=== PATIENT | female | born 1980 | race Caucasian/White ===

== ENCOUNTER 2021-03-30 03:50 | Emergency (ER) | payer OTHER, SELFPAY ==
--- NOTE | ~2021-03-30 | XR_ITS ---
EXAMINATION: XR CHEST CLINICAL INFORMATION: Dyspnea. Productive cough. COMPARISON: None TECHNIQUE: Frontal view of the chest was obtained. FINDINGS: The lungs are well expanded. There is no focal consolidation, edema, or effusion. No pneumothorax. The cardiomediastinal silhouette is within normal limits. No acute osseous abnormality. XR/XR chest 1V IMPRESSION: Clear lungs.
[2021-03-30 04:05] VITALS: BP 161/89; PULSE 92; RESP 26; TEMP 36.4; O2SAT 93; BMI 33.5
--- NOTE | 2021-03-30 04:14 | PC.NURSE ---
pt reports she was evaluated at urgent care yesterday, had a first dose of prednisone 40 mg and instructed to start taking singulair. pt has been experiencing dyspnea, increased at night with productive cough x 4 days. pt speaking in full sentences, reports that her spo2 was in the mid 80's while at home. 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 pt has moderate air movement with expiratory wheezing in all stauffer.
--- NOTE | 2021-03-30 04:38 | ED.ASTHMA ---
HPI - Asthma General Chief Complaint: Dyspnea Stated Complaint: Asthma Time Seen by Provider: 03/30/21 04:38 Source: patient Mode of arrival: ambulatory History of Present Illness HPI Narrative: 40-year-old female with known history of asthma presents with 4 days of worsening shortness of breath despite using her flow vent and nebulizer. She states she has never been seen in the emergency room for her asthma previously, but she noticed that her oxygenation was dipping down to the 85 percentile loss sleeping. She states this is not been associated with any fever, chills, chest pain/palpitations, nausea, vomiting, urinary pain/ burning / frequency. she has received both COVID-19 vaccines. Related Data Allergies Allergy/AdvReac Type Severity Reaction Status Date / Time amoxicillin [Amoxicillin] Allergy Unknown UNKNOWN Verified 03/30/21 04:13 coconut Allergy Unknown UNKNOWN Verified 03/30/21 04:13 hazelnut Allergy Unknown UNKNOWN Verified 03/30/21 04:13 Penicillins Allergy Unknown UNKNOWN Verified 03/30/21 04:13 Sulfa (Sulfonamide Allergy Unknown UNKNOWN Verified 03/30/21 04:13 Antibiotics) Latex, Natural Rubber AdvReac Blister Verified 03/30/21 04:13 From Lexapro Allergy Unknown UNKNOWN Uncoded 06/11/20 16:26 From Prozac Allergy Unknown UNKNOWN Uncoded 06/11/20 16:26 From Zoloft Allergy Unknown UNKNOWN Uncoded 06/11/20 16:26 Review of Systems Review of Systems: Pertinent positives and negatives as stated in HPI 10 point review of systems is otherwise negative. PMFSH Past Medical History Source: nursing notes reviewed Medical History Asthma Social History Social History Advance Directives: No Patient : No Physical Exam Vital Signs: Vital Signs: Last Vital Signs Temp 98.0 F 03/30/21 07:15 Pulse 101 H 03/30/21 08:15 Resp 23 H 03/30/21 08:15 BP 121/76 03/30/21 08:15 Pulse Ox 98 03/30/21 08:15 Body Mass Index 33.5 VITAL SIGNS: Reviewed. GENERAL: Well developed, well nourished, in no acute distress. HEAD: Normocephalic/atraumatic EYES: PERRLA, EOMI OROPHARYNX: no oral lesions noted, posterior pharynx clear LUNGS: Normal breath sounds. No adventitious sounds or accessory muscle use. SpO2<93> CARDIOVASCULAR: Regular rate and rhythm without noted murmurs ABDOMEN: Soft, non-tender, non-distended with bowel sounds. SKIN: Inspection of the skin reveals no rashes NEUROLOGIC: Alert and oriented x 4. Strength and sensation to light touch were grossly intact x 4. Course Course Course Narrative: On 40-year-old female with history and clinical cool presentation consistent with acute asthma exacerbation with low SpO2 and low suspicion for pneumonia or COVID-19. 0625: Patient still feeling short of breath and noted to have SpO2 94% on room air, and received and received 2nd albuterol treatment. On re-evaluation and walk test patient states she is feeling much better and her SpO2 percentage while walking was noted to be 96-97%. 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 [facility] - Asthma Lab Data Result diagrams: 03/30/21 04:52 03/30/21 04:52 Labs: Lab Results 03/30/21 03/30/21 03/30/21 Range/Units 04:52 04:52 04:52 WBC 10.8 (4.8-10.8) X10*3/uL RBC 4.19 L (4.20-5.50) X10*6/uL Hgb 13.2 (12.0-16.0) g/dl Hct 37.5 (37-47) % MCV 89.5 (80-98) fL MCH 31.5 (27.0-33.0) pg MCHC 35.2 H (31.0-35.0) g/dl RDW 13.0 (11.0-16.0) % Plt Count 318 (160-400) X10*3/uL MPV 9.4 (9.4-12.3) fL Immature Gran % (Auto) 0.4 (0.0-0.4) % Neut % (Auto) 67.0 (45-73) % Lymph % (Auto) 21.8 (20-40) % [place] % (Auto) 7.1 (2-11) % Eos % (Auto) 3.3 (0-4) % Baso % (Auto) 0.4 (0-2) % Lymph # (Auto) 2.3 (1.2-4.9) X10*3/uL [place] # (Auto) 0.8 (0.1-1.2) X10*3/uL Eos # (Auto) 0.4 (0.0-0.4) X10*3/uL Baso # (Auto) 0.0 (0.0-0.2) X10*3/uL Abs Immat Gran (auto) 0.04 H (0.00-0.03) X10*3/uL Absolute Neuts (auto) 7.2 (2.0-8.3) X10*3/uL Absolute Nucleated RBC 0.000 (0.0-0.012) X10*3/uL Nucleated RBC % (auto) 0.0 (0.0-0.2) /100WBC Sodium 140 (135-145) mmol/L Potassium 3.8 (3.3-5.1) mmol/L Chloride 108 (96-108) mmol/L Carbon Dioxide 20 L (22-29) mmol/L Anion Gap 16 (12-20) BUN 7 L (9-16) mg/dL Creatinine 0.70 (0.5-1.4) mg/dL Estim Creat Clear Calc 124.8 Estimated GFR > 60 Random Glucose 107 (60-115) mg/dL Calcium 9.2 (8.4-10.2) mg/dL Total Bilirubin 0.3 (0.0-1.0) mg/dL AST 18 (5-31) U/L ALT 12 (0-31) U/L Alkaline Phosphatase 46 (39-117) U/L Total Protein 7.2 (6.5-8.0) g/dL Albumin 4.2 (3.5-5.0) g/dL COVID-19 (AMPARO) Negative (Negative) COVID-19 Clin Com See Note Discharge Plan Discharge Clinical Impression: Asthma with exacerbation Patient Disposition: Home, Self-Care Instructions: Asthma (ED) Additional Instructions: 1. resume your course of p.o. steroids as prescribed. 2. Follow-up with your primary care provider today for re-evaluation and further planning for your symptoms. Return to the ER for any acute worsening of symptoms. Referrals: Sheila Salinas MD [Primary Care Provider] - 2 days ( Re-evaluation and outpatient management for visit to the ER for acute asthma exacerbation.)
[2021-03-30] MEDS: Albuterol Sulfate (0.083%) 2.5 MG/3 ML VIAL.NEB 10 MG INHALE (04:56)
[2021-03-30 04:58] VITALS: PULSE 89; O2SAT 93
[2021-03-30 04:59] LABS: MANUAL DIFF FLAG NO
[2021-03-30 05:00] LABS: Basophils Percent Auto 0.4 % (0-2); Eosinophils Absolute Auto 0.4 X10*3/uL (0.0-0.4); Eosinophils Percent Auto 3.3 % (0-4); Hematocrit 37.5 % (37-47); Hemoglobin 13.2 g/dl (12.0-16.0); Imm Gran Abs Auto 0.04 X10*3/uL (0.00-0.03); Imm Gran Pct Auto 0.4 % (0.0-0.4); Lymphocytes Absolute Auto 2.3 X10*3/uL (1.2-4.9); Lymphocytes Percent Auto 21.8 % (20-40); Mean Corpuscular HGB Conc 35.2 g/dl (31.0-35.0); Mean Corpuscular Hemoglobin 31.5 pg (27.0-33.0); Mean Corpuscular Volume 89.5 fL (80-98); Mean Platelet Volume 9.4 fL (9.4-12.3); Monocytes Absolute Auto 0.8 X10*3/uL (0.1-1.2); Monocytes Percent Auto 7.1 % (2-11); Neutrophils Absolute Auto 7.2 X10*3/uL (2.0-8.3); Platelet Count 318 X10*3/uL (160-400); Red Blood Count 4.19 X10*6/uL (4.20-5.50); White Blood Count 10.8 X10*3/uL (4.8-10.8)
[2021-03-30] MEDS: methylPREDNISolone Sod Succ 125 MG/2 ML VIAL IVPUSH (05:04)
[2021-03-30] MEDS: Magnesium Sulfate/H2O 2 GM/50 ML PIGGYBACK IV (05:04)
[2021-03-30 05:12] LABS: COVID-19 Test Negative (Negative)
--- NOTE | 2021-03-30 05:26 | PC.NURSE ---
PT PLACED ON MOLD CARRIER PER REQUEST OF RT FOR RESPIRATORY TREATMENT.
[2021-03-30 05:28] LABS: Alanine Aminotransferase 12 U/L (0-31); Albumin Level 4.2 g/dL (3.5-5.0); Alkaline Phosphatase 46 U/L (39-117); Anion Gap 16 (12-20); Aspartate Amino Transferase 18 U/L (5-31); Bilirubin Total 0.3 mg/dL (0.0-1.0); Blood Urea Nitrogen 7 mg/dL (9-16); Calcium 9.2 mg/dL (8.4-10.2); Carbon Dioxide 20 mmol/L (22-29); Chloride 108 mmol/L (96-108); Creatinine Clr Calc Pharmacy 124.8; Estimated Glomerular Filt Rate > 60; Glucose Random 107 mg/dL (60-115); Potassium 3.8 mmol/L (3.3-5.1); Sodium 140 mmol/L (135-145); Total Protein 7.2 g/dL (6.5-8.0)
[2021-03-30 06:14] VITALS: BP 133/67; PULSE 81; RESP 20; O2SAT 97
--- NOTE | 2021-03-30 06:15 | PC.NURSE ---
pt has rr 20, spo2 97% room air and feels like she can take deep breaths much clearer. pt breathing loudly at times, but while vitals are within normal range. pt ambulatory to bathroom with steady gait.
[2021-03-30 07:15] VITALS: BP 131/79; PULSE 88; RESP 24; TEMP 36.7; O2SAT 96
[2021-03-30] MEDS: Albuterol Sulfate (0.083%) 2.5 MG/3 ML VIAL.NEB 7.5 MG INHALE (07:35)
[2021-03-30 07:37] VITALS: PULSE 92; O2SAT 93
[2021-03-30 08:15] VITALS: BP 121/76; PULSE 101; RESP 23; O2SAT 98
== END 2021-03-30 09:17 | disposition home or self-care (01) ==
PROVIDERS: Emergency Provider Student in an Organized Health Care Education/Training Program; PCP Internal Medicine
DX: J45.901 Unspecified asthma with (acute) exacerbation (principal); Z20.822 Contact with and (suspected) exposure to COVID-19
CPT/HCPCS: 36415; 71045; 80053; 85025; 87635; 94640; 94644; 94645; 96365; 96366; 96375; 99284; J2930; J3475

== ENCOUNTER 2021-04-02 09:50 | Outpatient (REF) | payer OTHER, SELFPAY ==
[2021-04-02 11:38] LABS: MANUAL DIFF FLAG NO
[2021-04-02 11:44] LABS: Basophils Absolute Auto 0.1 X10*3/uL (0.0-0.2); Basophils Percent Auto 0.4 % (0-2); Eosinophils Absolute Auto 0.1 X10*3/uL (0.0-0.4); Eosinophils Percent Auto 1.1 % (0-4); Hematocrit 42.5 % (37-47); Hemoglobin 14.8 g/dl (12.0-16.0); Imm Gran Abs Auto 0.05 X10*3/uL (0.00-0.03); Imm Gran Pct Auto 0.4 % (0.0-0.4); Lymphocytes Absolute Auto 2.4 X10*3/uL (1.2-4.9); Lymphocytes Percent Auto 19.4 % (20-40); Mean Corpuscular HGB Conc 34.8 g/dl (31.0-35.0); Mean Corpuscular Hemoglobin 30.9 pg (27.0-33.0); Mean Corpuscular Volume 88.7 fL (80-98); Mean Platelet Volume 9.5 fL (9.4-12.3); Monocytes Absolute Auto 0.9 X10*3/uL (0.1-1.2); Monocytes Percent Auto 7.1 % (2-11); Neutrophils Absolute Auto 8.8 X10*3/uL (2.0-8.3); Neutrophils Percent Auto 71.6 % (45-73); Platelet Count 373 X10*3/uL (160-400); Red Blood Count 4.79 X10*6/uL (4.20-5.50); Red Cell Distribution Width 12.6 % (11.0-16.0); White Blood Count 12.3 X10*3/uL (4.8-10.8)
[2021-04-02 12:31] LABS: Erythrocyte Sedimentation Rate 12 MM/HR (0-20)
[2021-04-02 12:43] LABS: Anion Gap 13 (12-20); Blood Urea Nitrogen 12 mg/dL (9-16); Calcium 9.8 mg/dL (8.4-10.2); Carbon Dioxide 22 mmol/L (22-29); Chloride 107 mmol/L (96-108); Estimated Glomerular Filt Rate > 60; Glucose Random 93 mg/dL (60-115); Potassium 4.2 mmol/L (3.3-5.1); Sodium 138 mmol/L (135-145)
[2021-04-06 18:21] LABS: IgA 240 mg/dL (47-310); IgG 1104 mg/dL (600-1640); IgM 89 mg/dL (50-300)
== END 2021-04-02 09:51 | disposition home or self-care (01) ==
LOC: HO.LAB 09:50
PROVIDERS: PCP Internal Medicine; Visit Provider Hospitalist
DX: J45.51 Severe persistent asthma with (acute) exacerbation (principal); J30.2 Other seasonal allergic rhinitis; G47.33 Obstructive sleep apnea (adult) (pediatric)
CPT/HCPCS: 36415; 80048; 82784; 85025; 85652; 86003

== ENCOUNTER 2021-04-08 07:49 | Outpatient (REF) | payer OTHER, SELFPAY ==
--- NOTE | 2021-04-08 | PFT_ITS ---
FLOWS: FEV1 of 79% of predicted at 2.54 L. FVC 91% of predicted at 3.62 L. FEV1 to FVC ratio of 0.70. Positive bronchodilator response. LUNG VOLUMES: Total lung capacity 102% of predicted at 5.47 L. Residual volume 147% of predicted at 2.48 L. Slow vital capacity 81% of predicted at 2.99 L. Expiratory reserve volume 37% of predicted at 0.48 L. Diffusion capacity is mildly decreased, diffusion capacity corrects to normal after adjustment for alveolar ventilation. IMPRESSION: Moderate obstructive ventilatory defect with positive bronchodilator response. Increased residual volume suggests air trapping. Decreased expiratory reserve volume suggests extrathoracic restriction likely secondary to abdominal obesity. Faisal Valentino MD AP/MODL / [id number] MTDD
== END 2021-04-08 07:50 | disposition home or self-care (01) ==
LOC: HO.RESP 07:49
PROVIDERS: PCP Internal Medicine; Visit Provider Hospitalist
DX: J45.909 Unspecified asthma, uncomplicated (principal)
CPT/HCPCS: 94060; 94727; 94729

== ENCOUNTER → 2021-05-04 08:41 | Outpatient (BNVA) | payer OTHER, SELFPAY | PROVIDERS: PCP Internal Medicine; Visit Provider Hospitalist | DX: J45.909 Unspecified asthma, uncomplicated (principal); J44.9 Chronic obstructive pulmonary disease, unspecified ==

== ENCOUNTER → 2021-06-23 09:33 | Outpatient (BNVA) | payer OTHER, SELFPAY | PROVIDERS: PCP Internal Medicine; Visit Provider Hospitalist | DX: J45.909 Unspecified asthma, uncomplicated (principal); J44.9 Chronic obstructive pulmonary disease, unspecified ==

== ENCOUNTER 2021-08-30 09:26 | Outpatient (REF) | payer OTHER, SELFPAY ==
[2021-08-30 10:33] LABS: MANUAL DIFF FLAG NO
[2021-08-30 10:55] LABS: Basophils Absolute Auto 0.1 X10*3/uL (0.0-0.2); Basophils Percent Auto 1.3 % (0-2); Eosinophils Absolute Auto 1.4 X10*3/uL (0.0-0.4); Eosinophils Percent Auto 15.9 % (0-4); Hematocrit 40.2 % (37.0-47.0); Hemoglobin 13.8 g/dl (12.0-16.0); Imm Gran Abs Auto 0.04 X10*3/uL (0.00-0.03); Imm Gran Pct Auto 0.5 % (0.0-0.4); Lymphocytes Absolute Auto 1.7 X10*3/uL (1.2-4.9); Lymphocytes Percent Auto 20.2 % (20-40); Mean Corpuscular HGB Conc 34.3 g/dl (31.0-35.0); Mean Corpuscular Hemoglobin 30.9 pg (27.0-33.0); Mean Corpuscular Volume 89.9 fL (80.0-98.0); Mean Platelet Volume 9.2 fL (9.4-12.3); Monocytes Absolute Auto 0.6 X10*3/uL (0.1-1.2); Monocytes Percent Auto 6.6 % (2-11); Neutrophils Absolute Auto 4.7 x10*3/uL (2.0-8.3); Neutrophils Percent Auto 55.5 % (45-73); Platelet Count 351 X10*3/uL (160-400); Red Blood Count 4.47 X10*6/uL (4.20-5.50); Red Cell Distribution Width 12.6 % (11.0-16.0); White Blood Count 8.5 X10*3/uL (4.8-10.8)
[2021-08-30 11:16] LABS: Anion Gap 13 (12-20); Blood Urea Nitrogen 11 mg/dL (9-16); Calcium 9.6 mg/dL (8.4-10.2); Carbon Dioxide 25 mmol/L (22-29); Chloride 105 mmol/L (96-108); Estimated Glomerular Filt Rate > 60; Glucose Random 99 mg/dL (60-115); Potassium 4.5 mmol/L (3.3-5.1); Sodium 138 mmol/L (135-145)
[2021-08-30 11:33] LABS: Erythrocyte Sedimentation Rate 13 MM/HR (0-20)
[2021-09-01 18:42] LABS: Immunoglobulin G Subclass 1 512 mg/dL (382-929); Immunoglobulin G Subclass 2 292 mg/dL (241-700); Immunoglobulin G Subclass 3 68 mg/dL (22-178); Immunoglobulin G Subclass 4 97.8 mg/dL (4-86); Immunoglobulin G Total 1052 mg/dL (600-1640)
[2021-09-02 04:02] LABS: Immunoglobulin E 35 kU/L (<OR=114)
== END 2021-08-30 09:27 | disposition home or self-care (01) ==
LOC: HO.LAB 09:26
PROVIDERS: PCP Internal Medicine; Visit Provider Hospitalist
DX: J44.9 Chronic obstructive pulmonary disease, unspecified (principal); J45.51 Severe persistent asthma with (acute) exacerbation; J32.9 Chronic sinusitis, unspecified; J30.2 Other seasonal allergic rhinitis; G47.33 Obstructive sleep apnea (adult) (pediatric)
CPT/HCPCS: 36415; 80048; 82784; 82785; 85025; 85652; 86317

== ENCOUNTER → 2021-09-21 10:07 | Outpatient (BNVA) | payer OTHER, SELFPAY | PROVIDERS: Visit Provider Hospitalist ==

== ENCOUNTER → 2021-11-03 08:51 | Outpatient (BNVA) | payer OTHER, SELFPAY | PROVIDERS: PCP Internal Medicine; Visit Provider Hospitalist | DX: J45.909 Unspecified asthma, uncomplicated (principal); J44.9 Chronic obstructive pulmonary disease, unspecified ==

== ENCOUNTER 2022-01-18 13:04 | Outpatient (REF) | payer OTHER, SELFPAY ==
[2022-01-18 15:22] LABS: Influenza A PCR NEGATIVE (Negative); Influenza B PCR NEGATIVE (Negative); Resp Syncy Virus RNA Qual PCR NEGATIVE (Negative); SARS COV2 PCR INHOUSE NEGATIVE (Negative)
== END 2022-01-18 13:05 | disposition home or self-care (01) ==
LOC: HO.LAB 13:04
PROVIDERS: Visit Provider Nurse Practitioner Acute Care
DX: R68.89 Other general symptoms and signs (principal); R51.9 Headache, unspecified; Z20.822 Contact with and (suspected) exposure to COVID-19
CPT/HCPCS: 0241U

== ENCOUNTER 2022-01-18 13:04 | Outpatient (REF) | payer OTHER, SELFPAY ==
[2022-01-18 14:10] LABS: MANUAL DIFF FLAG NO
[2022-01-18 14:14] LABS: Basophils Absolute Auto 0.1 X10*3/uL (0.0-0.2); Basophils Percent Auto 1.1 % (0-2); Eosinophils Absolute Auto 1.4 X10*3/uL (0.0-0.4); Eosinophils Percent Auto 16.4 % (0-4); Hematocrit 39.2 % (37.0-47.0); Hemoglobin 13.2 g/dl (12.0-16.0); Imm Gran Abs Auto 0.03 X10*3/uL (0.00-0.03); Imm Gran Pct Auto 0.4 % (0.0-0.4); Lymphocytes Absolute Auto 1.7 X10*3/uL (1.2-4.9); Mean Corpuscular HGB Conc 33.7 g/dl (31.0-35.0); Mean Corpuscular Hemoglobin 30.6 pg (27.0-33.0); Mean Platelet Volume 9.6 fL (9.4-12.3); Monocytes Absolute Auto 0.6 X10*3/uL (0.1-1.2); Monocytes Percent Auto 6.8 % (2-11); Neutrophils Absolute Auto 4.7 x10*3/uL (2.0-8.3); Neutrophils Percent Auto 55.3 % (45-73); Platelet Count 383 X10*3/uL (160-400); Red Blood Count 4.31 X10*6/uL (4.20-5.50); Red Cell Distribution Width 12.4 % (11.0-16.0); White Blood Count 8.5 X10*3/uL (4.8-10.8)
[2022-01-18 14:31] LABS: Alanine Aminotransferase 17 U/L (0-31); Albumin Level 4.1 g/dL (3.5-5.0); Alkaline Phosphatase 59 U/L (39-117); Anion Gap 11 (12-20); Aspartate Amino Transferase 18 U/L (5-31); Bilirubin Total 0.5 mg/dL (0.0-1.0); Blood Urea Nitrogen 7 mg/dL (9-16); Calcium 9.3 mg/dL (8.4-10.2); Carbon Dioxide 27 mmol/L (22-29); Chloride 104 mmol/L (96-108); Estimated Glomerular Filt Rate > 60; Glucose Random 100 mg/dL (60-115); Potassium 4.2 mmol/L (3.3-5.1); Sodium 138 mmol/L (135-145); Total Protein 7.3 g/dL (6.5-8.0)
== END 2022-01-18 13:05 | disposition home or self-care (01) ==
LOC: HO.HMGCLDS 13:04
PROVIDERS: PCP Internal Medicine; Visit Provider Nurse Practitioner Acute Care
DX: R68.89 Other general symptoms and signs (principal); R51.9 Headache, unspecified
CPT/HCPCS: 36415; 80053; 85025

== ENCOUNTER 2022-03-30 16:36 | Outpatient (REF) | payer OTHER, SELFPAY ==
[2022-03-30 18:03] LABS: Influenza A PCR NEGATIVE (Negative); Influenza B PCR NEGATIVE (Negative); Resp Syncy Virus RNA Qual PCR NEGATIVE (Negative); SARS COV2 PCR INHOUSE NEGATIVE (Negative)
== END 2022-03-30 16:37 | disposition home or self-care (01) ==
LOC: HO.LNP 16:36
PROVIDERS: Visit Provider Emergency Medicine
DX: Z20.822 Contact with and (suspected) exposure to COVID-19 (principal); R68.89 Other general symptoms and signs
CPT/HCPCS: 0241U

== ENCOUNTER 2022-04-20 08:13 | Outpatient (REF) | payer OTHER, SELFPAY ==
[2022-04-20 09:27] LABS: Alanine Aminotransferase 16 U/L (0-31); Albumin Level 4.4 g/dL (3.5-5.0); Alkaline Phosphatase 51 U/L (39-117); Anion Gap 13 (12-20); Aspartate Amino Transferase 18 U/L (5-31); Bilirubin Total 0.6 mg/dL (0.0-1.0); Blood Urea Nitrogen 7 mg/dL (9-16); Calcium 9.1 mg/dL (8.4-10.2); Carbon Dioxide 23 mmol/L (22-29); Chloride 107 mmol/L (96-108); Cholesterol 198 mg/dL; Estimated Glomerular Filt Rate > 60; Glucose Fasting 125 mg/dL (60-99); HDL Cholesterol 40 mg/dL; LDL Cholesterol Calculated 142 mg/dl; Potassium 4.1 mmol/L (3.3-5.1); Sodium 139 mmol/L (135-145); Total Protein 7.6 g/dL (6.5-8.0); Triglycerides 84 mg/dL
[2022-04-20 09:51] LABS: TSH reflex Free T4 1.48 uIU/mL (0.32-4.0); Vitamin D 25-OH Total 48.6 ng/mL (>30)
[2022-04-20 09:56] LABS: Folate 7.1 ng/mL (> or = 4.0); Vitamin B12 354 pg/mL (200-900)
== END 2022-04-20 08:14 | disposition home or self-care (01) ==
LOC: HO.LAB 08:13
PROVIDERS: PCP Internal Medicine; Visit Provider Nurse Practitioner Family
DX: Z13.29 Encounter for screening for other suspected endocrine disorder (principal); Z13.220 Encounter for screening for lipoid disorders; J44.9 Chronic obstructive pulmonary disease, unspecified
CPT/HCPCS: 36415; 80053; 80061; 82306; 82607; 82746; 84443

== ENCOUNTER 2022-08-22 12:53 | Emergency (ER) | payer OTHER, SELFPAY ==
--- NOTE | ~2022-08-22 | CT_ITS ---
EXAMINATION: CT HEAD WITHOUT CONTRAST CLINICAL INFORMATION: Dizziness, blurred vision. COMPARISON: None TECHNIQUE: Contiguous axial imaging was performed from the skull base to vertex without intravenous administration of contrast. Oral and sagittal reformatted images were obtained. This CT examination was performed using dose optimization techniques as appropriate, variously including the following: *Automated exposure control *Adjustment of mA and/or kV according to patient size (this includes techniques or standardized protocols for targeted exams where dose is matched to indication/reason for exam; i.e. extremities or head) *Use of iterative reconstruction technique DLP: 665 mGy-cm FINDINGS: The cortical sulci are normal. The lateral ventricles are symmetrical. The third and fourth ventricles are in their normal midline position. The basilar and prepontine cisterns are unremarkable. There is no acute intra or extracerebral abnormality. There is no mass effect or midline shift. Sections through the bony calvarium are unremarkable. The paranasal sinuses are clear. The bony orbits and orbital contents are unremarkable. CT/CT head/brain wo IV con IMPRESSION: No acute intracranial pathology.
[2022-08-22 14:28] VITALS: BP 169/91; PULSE 70; RESP 16; TEMP 36.9; O2SAT 99; BMI 31.4
--- NOTE | 2022-08-22 14:28 | ED_ITS ---
HPI - Dizziness General Chief Complaint: Dizziness <TELMA Henning - Last Filed: 08/22/22 14:32> Stated Complaint: dizzy for a few weeks, cant walk straight <TELMA Henning - Last Filed: 08/22/22 14:32> Time Seen by Provider: 08/22/22 22:53 <TELMA Henning - Last Filed: 08/22/22 14:32> Source: patient <Lulu Guidry MD - Last Filed: 08/23/22 00:01> Mode of arrival: ambulatory <Lulu Guidry MD - Last Filed: 08/23/22 00:01> Limitations: no limitations <Lulu Guidry MD - Last Filed: 08/23/22 00:01> History of Present Illness HPI Narrative: Patient comes to the emergency room complaining dizziness, difficulty finding words since for the last 22 days. Patient states that all of her symptoms started right after she got off a ship/cruise. Patient states that she has constantly the sensation that she is still on the ship. Patient denies chest pain or shortness of breath. Patient states that she has had difficulty walking straight, difficulty finding words, headaches. Patient states that urgent care gave her butalbital-acetaminophen for headache. Patient has also been using scopolamine patches. <Lulu Guidry MD - Last Filed: 08/23/22 00:01> Related Data Home Medications: Home Medications Medication Instructions Recorded Confirmed albuterol sulfate 90 mcg/actuation inhalation 04/02/21 04/14/22 aerosol inhaler lorazepam 0.5 mg tablet mg PO 04/02/21 04/14/22 phentermine 15 mg capsule 15 mg PO QAM 04/20/22 Previous Rx's Medication Instructions Recorded budesonide 0.5 mg/2 mL suspension 0.5 mg (2 mL) inhalation BID 30 04/02/21 for nebulization days #120 mL dupilumab 300 mg/2 mL subcutaneous 300 mg (2 mL) subcut Q2W 365 days 09/09/21 syringe (Lemko) #56 mL meclizine 25 mg tablet 25 mg PO BID PRN dizziness #30 tabs 01/18/22 ondansetron 4 mg disintegrating 4 mg PO Q8H PRN nausea and 01/18/22 tablet vomiting 14 days #20 tabs ipratropium 0.5 mg-albuterol 3 mg 3 ml inhalation BID PRN shortness 04/14/22 (2.5 mg base)/3 mL nebulization of breath or wheezing 30 days #180 soln mL bfyfdbphqw-eygdebpcfhqfc-smyuxowk 1 cap PO Q4-6H PRN headache #10 04/19/22 50 mg-300 mg-40 mg capsule caps (Fioricet) Spiriva Respimat 2.5 mcg/actuation 2 puff PO DAILY #4 grams 05/16/22 solution for inhalation (tiotropium bromide) Symbicort 160 mcg-4.5 2 puff PO BID #10.2 ea 05/16/22 mcg/actuation HFA aerosol inhaler (budesonide-formoterol) omeprazole 40 mg capsule,delayed 40 mg PO DAILY #90 caps 07/10/22 release diazepam 2 mg tablet 2 mg PO BID PRN dizziness or 08/22/22 vertigo #6 tabs meclizine 25 mg tablet 25 mg PO TID PRN motion sickness 08/22/22 #20 tabs <TELMA Henning - Last Filed: 08/22/22 14:32> Allergies/Adverse Reactions: Allergies Allergy/AdvReac Type Severity Reaction Status Date / Time amoxicillin [Amoxicillin] Allergy Severe Rash/Hives Verified 04/20/22 08:44 coconut Allergy Severe Rash/Hives Verified 04/20/22 08:44 hazelnut Allergy Severe Rash/Hives Verified 04/20/22 08:44 Penicillins Allergy Severe Rash/Hives Verified 04/20/22 08:44 Sulfa (Sulfonamide Allergy Severe Rash/Hives Verified 04/20/22 08:44 Antibiotics) Latex, Natural Rubber AdvReac Severe Blister Verified 04/20/22 08:44 From Lexapro Allergy Severe Rash/Hives Uncoded 04/20/22 08:44 From Prozac Allergy Severe Rash/Hives Uncoded 04/20/22 08:44 From Zoloft Allergy Severe Rash/Hives Uncoded 04/20/22 08:44 <TELMA Henning - Last Filed: 08/22/22 14:32> Review of Systems Review of Systems: Constitutional : No Weight loss, No Fever, No Chills, No Night Sweats, No Fatigue, No Malaise ENT/Mouth : No Hearing loss, No Ear Pain, No Nasal Congestion, No Sinus Pain, No Hoarseness, No sore throat, No Rhinorrhea, No Swallowing Difficulty Eyes: No Eye Pain, No Swelling, No Redness, No Foreign Body, No Discharge, No Vision Changes Cardiovascular : No Chest Pain, No SOB, No Dyspnea on Exertion, No Orthopnea, No Edema, No Palpitations Respiratory : No Cough, No Sputum, No Wheezing, No Smoke Exposure, No Dyspnea Gastrointestinal : No Nausea, No Vomiting, No Diarrhea, No Constipation, No abdominal Pain, No Hematochezia, No Melena Genitourinary : no irregular bleeding, No Dysuria, No Urinary Frequency, No Hematuria, No Urinary Incontinence, No Urgency, No Flank Pain, No Urinary Flow Changes, No Hesitancy Musculoskeletal : No joint pain, No Myalgias, No Joint Swelling Skin : No Skin Lesions, No rash Neuro : No Weakness, No Numbness, No Paresthesias, No Loss of Consciousness, complaining of constant motion like sensation, like being on a ship, migraine headaches Psych : No Anxiety/Panic, No Depression, No SI/HI/AH/VH, No Social Issues, Heme/Lymph: No Bruising, No Bleeding,No Lymphadenopathy Endocrine : No Polyuria, No Polydipsia, No Temperature Intolerance <Lulu Guidry MD - Last Filed: 08/23/22 00:01> [facility] Past Medical History Medical History: Medical History Asthma Asthma Asthma-COPD overlap syndrome MORALES (obstructive sleep apnea) Seasonal allergies <TELMA Henning - Last Filed: 08/22/22 14:32> Surgical History: Surgical History H/O cardiac catheterization History of section <TELMA Henning - Last Filed: 08/22/22 14:32> Social History Social History: Social History Patient Tobacco Use Status: Former Tobacco user Tobacco use type: Cigarette Years Smoked: 11 years Advance Directives: No Advance Directives Information Provided: Yes Cognitive needs: No Hearing needs: No Vision needs: No <TELMA Henning - Last Filed: 08/22/22 14:32> Physical Exam Vital Signs: Vital Signs: Last Vital Signs Temp 97.9 F 08/22/22 21:43 Pulse 68 08/22/22 21:43 Resp 18 08/22/22 21:43 BP 144/87 H 08/22/22 21:43 Pulse Ox 99 08/22/22 21:43 O2 Del Method 08/22/22 21:43 BMI result Body Mass Index 31.4 <TLEMA Henning - Last Filed: 08/22/22 14:32> Vital Signs: Last Vital Signs Temp 97.9 F 08/22/22 21:43 Pulse 68 08/22/22 21:43 Resp 18 08/22/22 21:43 BP 144/87 H 08/22/22 21:43 Pulse Ox 99 08/22/22 21:43 O2 Del Method 08/22/22 21:43 BMI result Body Mass Index 31.4 <Lulu Guidry MD - Last Filed: 08/23/22 00:01> Const: Other: Appearance: Alert. Oriented X3. No acute distress. Eyes: Pupils equal, round and reactive to light. ENT: Pharynx normal. Neck: Normal inspection. Neck supple. No lymph nodes noted. No crepitus CVS: Normal heart rate and rhythm. Pulses normal. Normal S1 and S2 Respiratory: No respiratory distress. Breath sounds normal. No Wheezing. No rales Abdomen: Soft and nontender. No rigidity. No distention. Skin: Skin warm and dry. Normal skin color. Normal skin turgor. Extremities: No lower extremity edema. No Lacerations. No Rash Neuro: Oriented X 3. No motor deficit. No sensory deficit. Moving all extremities. No slurred speech. CN 2 through 12 grossly intact, normal speech, patient walked from the waiting room to warts her room with normal steady gait, unassisted. Patient has completely normal speech, no dysarthria, no aphasia Psych: calm, cooperative, very anxious <Lulu Guidry MD - Last Filed: 08/23/22 00:01> Course Course Course Narrative: Patient walked in to triage with normal gait. Furthermore, patient walked from the waiting room torso with normal unassisted gait, steady. On physical exam, patient's exam is completely normal. NIH is [address] scan is negative, hematology and chemistry Patient was given p.o. diazepam and meclizine, IV diphenhydramine, ketorolac It has been 22 days since the patient started with her symptoms, started right after getting off a cruise ship. Patient likely disembarkment syndrome. I was informed by the patient's nurse that the patient declined diazepam diphenhydramine and ketorolac. Patient states that she feels well. Patient also states that she would like to be discharged and does not want her discharge to be delayed due to medication. Patient agreed to take meclizine. Patient requesting a prescription home. <Lulu Guidry MD - Last Filed: 08/23/22 00:01> Reevaluation(s) Reevaluation #1: RME: 41 year old female hx of migranes prsents w/ dizziess and dificulty finding words for weeks. On 07/31 came back from a cruise and since then has felt dizzy describes it as walking on a boat, also having headache and notes her speech has been difficult. Reports she cant walk a straigt line. Has taken barbituattes for headache and meclizine w/o relief. Reports blurred vision,photophobia and nausea. Denies chest pain, shortness of breath, fevers, chills, numbness and tingling. Not on thinners PE - benign. NIHSS-0. Cerbellar intact. Plan- labs, ct head, ekg <TELMA Henning - Last Filed: 08/22/22 14:32> Medications Administered Discontinued Medications Generic Name Dose Route Start Last Admin Trade Name Magda PRN Reason Stop Dose Admin Diazepam 4 mg 08/22/22 22:58 08/22/22 23:50 Diazepam 2 Mg Tablet PO 08/22/22 22:59 Not Given ONCE ONE Diphenhydramine HCl 25 mg 08/22/22 22:58 08/22/22 23:50 Diphenhydramine Hcl 50 Mg/Ml Vial IVPUSH 08/22/22 22:59 Not Given ONCE ONE Ketorolac Tromethamine 30 mg 08/22/22 22:58 08/22/22 23:50 Ketorolac Tromethamine 30 Mg/Ml Vial IVPUSH 08/22/22 22:59 Not Given ONCE ONE Meclizine HCl 50 mg 08/22/22 22:58 08/22/22 23:40 Meclizine Hcl 25 Mg Tablet PO 08/22/22 22:59 50 mg ONCE ONE Administration <TELMA Henning - Last Filed: 08/22/22 14:32> Medications Administered Discontinued Medications Generic Name Dose Route Start Last Admin Trade Name Magda RICE Reason Stop Dose Admin Diazepam 4 mg 08/22/22 22:58 08/22/22 23:50 Diazepam 2 Mg Tablet PO 08/22/22 22:59 Not Given ONCE ONE Diphenhydramine HCl 25 mg 08/22/22 22:58 08/22/22 23:50 Diphenhydramine Hcl 50 Mg/Ml Vial IVPUSH 08/22/22 22:59 Not Given ONCE ONE Ketorolac Tromethamine 30 mg 08/22/22 22:58 08/22/22 23:50 Ketorolac Tromethamine 30 Mg/Ml Vial IVPUSH 08/22/22 22:59 Not Given ONCE ONE Meclizine HCl 50 mg 08/22/22 22:58 08/22/22 23:40 Meclizine Hcl 25 Mg Tablet PO 08/22/22 22:59 50 mg ONCE ONE Administration <Lulu Guidry MD - Last Filed: 08/23/22 00:01> MDM - Dizziness Lab Data Result diagrams: : 08/22/22 15:55 08/22/22 15:55 <TELMA Henning - Last Filed: 08/22/22 14:32> Labs: Lab Results 08/22/22 08/22/22 Range/Units 15:55 15:55 WBC 7.4 (4.8-10.8) X10*3/uL RBC 4.49 (4.20-5.50) X10*6/uL Hgb 13.7 (12.0-16.0) g/dl Hct 40.7 (37.0-47.0) % MCV 90.6 (80.0-98.0) fL MCH 30.5 (27.0-33.0) pg MCHC 33.7 (31.0-35.0) g/dl RDW 13.0 (11.0-16.0) % Plt Count 392 (160-400) X10*3/uL MPV 9.5 (9.4-12.3) fL Immature Gran % (Auto) 0.3 (0.0-0.4) % Neut % (Auto) 58.7 (45-73) % Lymph % (Auto) 25.4 (20-40) % [place] % (Auto) 9.4 (2-11) % Eos % (Auto) 5.5 H (0-4) % Baso % (Auto) 0.7 (0-2) % Lymph # (Auto) 1.9 (1.2-4.9) X10*3/uL [place] # (Auto) 0.7 (0.1-1.2) X10*3/uL Eos # (Auto) 0.4 (0.0-0.4) X10*3/uL Baso # (Auto) 0.1 (0.0-0.2) X10*3/uL Abs Immat Gran (auto) 0.02 (0.00-0.03) X10*3/uL Absolute Neuts (auto) 4.4 (2.0-8.3) x10*3/uL Absolute Nucleated RBC 0.000 (0.0-0.012) X10*3/uL Nucleated RBC % (auto) 0.0 (0.0-0.2) /100WBC Sodium 135 (135-145) mmol/L Potassium 4.5 (3.3-5.1) mmol/L Chloride 104 (96-108) mmol/L Carbon Dioxide 22 (22-29) mmol/L Anion Gap 14 (12-20) BUN 14 (9-16) mg/dL Creatinine 0.75 (0.5-1.4) mg/dL Estim Creat Clear Calc 111.7 Estimated GFR > 60 Random Glucose 95 (60-115) mg/dL Calcium 9.9 D (8.4-10.2) mg/dL Magnesium 2.0 (1.6-2.6) mg/dL Total Bilirubin 0.4 (0.0-1.0) mg/dL AST 18 (5-31) U/L ALT 17 (0-31) U/L Alkaline Phosphatase 45 (39-117) U/L Total Protein 7.5 (6.5-8.0) g/dL Albumin 4.4 (3.5-5.0) g/dL <TELMA Henning - Last Filed: 08/22/22 14:32> Lab Results 08/22/22 08/22/22 Range/Units 15:55 15:55 WBC 7.4 (4.8-10.8) X10*3/uL RBC 4.49 (4.20-5.50) X10*6/uL Hgb 13.7 (12.0-16.0) g/dl Hct 40.7 (37.0-47.0) % MCV 90.6 (80.0-98.0) fL MCH 30.5 (27.0-33.0) pg MCHC 33.7 (31.0-35.0) g/dl RDW 13.0 (11.0-16.0) % Plt Count 392 (160-400) X10*3/uL MPV 9.5 (9.4-12.3) fL Immature Gran % (Auto) 0.3 (0.0-0.4) % Neut % (Auto) 58.7 (45-73) % Lymph % (Auto) 25.4 (20-40) % [place] % (Auto) 9.4 (2-11) % Eos % (Auto) 5.5 H (0-4) % Baso % (Auto) 0.7 (0-2) % Lymph # (Auto) 1.9 (1.2-4.9) X10*3/uL [place] # (Auto) 0.7 (0.1-1.2) X10*3/uL Eos # (Auto) 0.4 (0.0-0.4) X10*3/uL Baso # (Auto) 0.1 (0.0-0.2) X10*3/uL Abs Immat Gran (auto) 0.02 (0.00-0.03) X10*3/uL Absolute Neuts (auto) 4.4 (2.0-8.3) x10*3/uL Absolute Nucleated RBC 0.000 (0.0-0.012) X10*3/uL Nucleated RBC % (auto) 0.0 (0.0-0.2) /100WBC Sodium 135 (135-145) mmol/L Potassium 4.5 (3.3-5.1) mmol/L Chloride 104 (96-108) mmol/L Carbon Dioxide 22 (22-29) mmol/L Anion Gap 14 (12-20) BUN 14 (9-16) mg/dL Creatinine 0.75 (0.5-1.4) mg/dL Estim Creat Clear Calc 111.7 Estimated GFR > 60 Random Glucose 95 (60-115) mg/dL Calcium 9.9 D (8.4-10.2) mg/dL Magnesium 2.0 (1.6-2.6) mg/dL Total Bilirubin 0.4 (0.0-1.0) mg/dL AST 18 (5-31) U/L ALT 17 (0-31) U/L Alkaline Phosphatase 45 (39-117) U/L Total Protein 7.5 (6.5-8.0) g/dL Albumin 4.4 (3.5-5.0) g/dL <Lulu Guidry MD - Last Filed: 08/23/22 00:01> Imaging Data CT scan - head: Radiologist's impression: FINDINGS: The cortical sulci are normal. The lateral ventricles are symmetrical. The third and fourth ventricles are in their normal midline position. The basilar and prepontine cisterns are unremarkable. There is no acute intra or extracerebral abnormality. There is no mass effect or midline shift. Sections through the bony calvarium are unremarkable. The paranasal sinuses are clear. The bony orbits and orbital contents are unremarkable. CT/CT head/brain wo IV con IMPRESSION: No acute intracranial pathology. <Lulu Guidry MD - Last Filed: 08/23/22 00:01> Discharge Plan Discharge Clinical Impression: Dizziness <TELMA Henning - Last Filed: 08/22/22 14:32> Patient Disposition: Home, Self-Care <TELMA Henning - Last Filed: 08/22/22 14:32> Instructions: Motion Sickness (ED), Dizziness (ED) <TELMA Henning - Last Filed: 08/22/22 14:32> Additional Instructions: Please follow-up with your primary care physician tomorrow. If you have any worsening or new symptoms, please return to the emergency room or call 911 <TELMA Henning - Last Filed: 08/22/22 14:32> Prescriptions: New meclizine 25 mg tablet 25 mg PO TID PRN (Reason: motion sickness) Qty: 20 0RF diazepam 2 mg tablet 2 mg PO BID PRN (Reason: dizziness or vertigo) Qty: 6 0RF No Action Dupixent Syringe 300 mg/2 mL syringe 300 mg subcut Q2W 365 Days Qty: 56 0RF Rx Instructions: LOading dose: 600mg SC x 1, then 300mg every 2 weeks diuejramsw-duahfnwiggbiu-bdbk [Fioricet] 50-300-40 mg capsule 1 cap PO Q4-6H PRN (Reason: headache) Qty: 10 0RF budesonide-formoterol [Symbicort] 160-4.5 mcg/actuation HFA aerosol inhaler 2 puff PO BID Qty: 10.2 11RF Spiriva Respimat 2.5 mcg/actuation mist 2 puff PO DAILY Qty: 4 11RF omeprazole 40 mg capsule,delayed release(DR/EC) 40 mg PO DAILY Qty: 90 0RF ipratropium-albuterol 0.5 mg-3 mg(2.5 mg base)/3 mL solution for nebulization 3 ml inhalation BID PRN (Reason: shortness of breath or wheezing) 30 Days Qty: 180 11RF meclizine 25 mg tablet 25 mg PO BID PRN (Reason: dizziness) Qty: 30 0RF ondansetron 4 mg tablet,disintegrating 4 mg PO Q8H PRN (Reason: nausea and vomiting) 14 Days Qty: 20 0RF albuterol sulfate 90 mcg/actuation HFA aerosol inhaler inhalation lorazepam 0.5 mg tablet PO budesonide 0.5 mg/2 mL suspension for nebulization 0.5 mg inhalation BID 30 Days Qty: 120 11RF phentermine 15 mg capsule 15 mg PO QAM <TELMA Henning - Last Filed: 08/22/22 14:32>
--- NOTE | 2022-08-22 14:32 | ECG_ITS ---
Test Reason : DIZZINESS Blood Pressure : / mmHG Vent. Rate : 061 BPM Atrial Rate : 061 BPM P-R Int : 126 ms QRS Dur : 078 ms QT Int : 424 ms P-R-T Axes : -21 015 046 degrees QTc Int : 426 ms Normal sinus rhythm Low voltage QRS Nonspecific ST abnormality Abnormal ECG When compared with ECG of 03-JAN-2010 08:40, No significant change was found Referred By: Gaudencio Donis Electronically Signed By:WANDY PEARSON MD
[2022-08-22 16:05] LABS: MANUAL DIFF FLAG NO
[2022-08-22 16:08] LABS: Basophils Absolute Auto 0.1 X10*3/uL (0.0-0.2); Basophils Percent Auto 0.7 % (0-2); Eosinophils Absolute Auto 0.4 X10*3/uL (0.0-0.4); Eosinophils Percent Auto 5.5 % (0-4); Hematocrit 40.7 % (37.0-47.0); Hemoglobin 13.7 g/dl (12.0-16.0); Imm Gran Abs Auto 0.02 X10*3/uL (0.00-0.03); Imm Gran Pct Auto 0.3 % (0.0-0.4); Lymphocytes Absolute Auto 1.9 X10*3/uL (1.2-4.9); Lymphocytes Percent Auto 25.4 % (20-40); Mean Corpuscular HGB Conc 33.7 g/dl (31.0-35.0); Mean Corpuscular Hemoglobin 30.5 pg (27.0-33.0); Mean Corpuscular Volume 90.6 fL (80.0-98.0); Mean Platelet Volume 9.5 fL (9.4-12.3); Monocytes Absolute Auto 0.7 X10*3/uL (0.1-1.2); Monocytes Percent Auto 9.4 % (2-11); Neutrophils Absolute Auto 4.4 x10*3/uL (2.0-8.3); Neutrophils Percent Auto 58.7 % (45-73); Platelet Count 392 X10*3/uL (160-400); Red Blood Count 4.49 X10*6/uL (4.20-5.50); White Blood Count 7.4 X10*3/uL (4.8-10.8)
[2022-08-22 16:26] LABS: Alanine Aminotransferase 17 U/L (0-31); Albumin Level 4.4 g/dL (3.5-5.0); Alkaline Phosphatase 45 U/L (39-117); Anion Gap 14 (12-20); Aspartate Amino Transferase 18 U/L (5-31); Bilirubin Total 0.4 mg/dL (0.0-1.0); Blood Urea Nitrogen 14 mg/dL (9-16); Calcium 9.9 mg/dL (8.4-10.2); Carbon Dioxide 22 mmol/L (22-29); Chloride 104 mmol/L (96-108); Creatinine Clr Calc Pharmacy 111.7; Estimated Glomerular Filt Rate > 60; Glucose Random 95 mg/dL (60-115); Potassium 4.5 mmol/L (3.3-5.1); Sodium 135 mmol/L (135-145); Total Protein 7.5 g/dL (6.5-8.0)
[2022-08-22 21:43] VITALS: BP 144/87; PULSE 68; RESP 18; TEMP 36.6; O2SAT 99
[2022-08-22] MEDS: Meclizine HCl 25 MG TABLET 50 MG PO (23:40)
--- NOTE | 2022-08-23 00:26 | PC.NURSE ---
PT V/S were stable, pt appears anxious, pt was order medication but she denies it d/t she will be driving home alone. Pt was d/c with prescription for her dizziness and anxiety.
== END 2022-08-23 00:26 | disposition home or self-care (01) ==
PROVIDERS: Physician Assistant; Emergency Provider Emergency Medicine; PCP Internal Medicine
DX: R42 Dizziness and giddiness (principal); Z87.891 Personal history of nicotine dependence; Z79.899 Other long term (current) drug therapy
CPT/HCPCS: 36415; 70450; 80053; 83735; 85025; 93005; 96374; 96375; 99284

== ENCOUNTER 2022-08-29 09:03 | Outpatient (REF) | payer OTHER, SELFPAY ==
--- NOTE | 2022-08-29 11:20 | PFT_ITS ---
Forced vital capacity 89%, FEV1 77%. FEV1/FVC ratio is 70. IEL88-34 50% and MVV 84%. Post bronchodilator therapy, there is significant improvement in all flow volumes resulting in complete reversibility. Total lung capacity 102%. Residual volume 99%. Diffusion capacity 92%. CONCLUSION: [id number] degree of obstructive airway disorder with complete reversibility after bronchodilator therapy. These findings are consistent with bronchial asthma. Clinical correlation is recommended. MD GERALDINE Robledo/ROBIN / [id number]
== END 2022-08-29 09:04 | disposition home or self-care (01) ==
LOC: HO.RESP 09:03
PROVIDERS: Visit Provider Hospitalist
DX: J45.51 Severe persistent asthma with (acute) exacerbation (principal)
CPT/HCPCS: 94060; 94727; 94729

== ENCOUNTER → 2022-09-14 09:09 | Outpatient (BNVA) | payer OTHER, SELFPAY | PROVIDERS: PCP Internal Medicine; Visit Provider Hospitalist | DX: J45.909 Unspecified asthma, uncomplicated (principal); J44.9 Chronic obstructive pulmonary disease, unspecified ==

== ENCOUNTER → 2022-09-15 13:26 | Outpatient (BNVA) | payer OTHER, SELFPAY | PROVIDERS: PCP Internal Medicine; Visit Provider Nurse Practitioner Family | DX: R42 Dizziness and giddiness (principal) ==

== ENCOUNTER 2022-10-25 10:56 | Outpatient (REF) | payer OTHER, SELFPAY ==
[2022-10-25 19:25] LABS: CT PCR NOT DETECTED (Not Detect.); NG PCR NOT DETECTED (Not Detect.)
[2022-10-26 09:45] LABS: BV Int Neg Control Negative (Negative); BV Int Pos Control Positive (Positive)
== END 2022-10-25 10:57 | disposition home or self-care (01) ==
LOC: HO.LAB 10:56
PROVIDERS: PCP Internal Medicine; Visit Provider Advanced Practice Midwife
DX: Z11.3 Encounter for screening for infections with a predominantly sexual mode of transmission (principal)
CPT/HCPCS: 0353U; 87480; 87510; 87660

== ENCOUNTER 2022-10-25 11:33 | Outpatient (REF) | payer OTHER, SELFPAY ==
[2022-10-29 07:33] LABS: HPV mRNA E6/E7 rflx Not Detected (Not Detected)
== END 2022-10-25 11:34 | disposition home or self-care (01) ==
LOC: HO.LNP 11:33
PROVIDERS: Visit Provider Advanced Practice Midwife
DX: Z01.419 Encounter for gynecological examination (general) (routine) without abnormal findings (principal); Z11.51 Encounter for screening for human papillomavirus (HPV)
CPT/HCPCS: 87624; 88142

== ENCOUNTER → 2022-11-28 10:32 | Outpatient (BNVA) | payer OTHER, SELFPAY | PROVIDERS: PCP Internal Medicine; Visit Provider Nurse Practitioner Family | DX: K21.9 Gastro-esophageal reflux disease without esophagitis (principal) ==

== ENCOUNTER → 2023-02-28 09:00 | Outpatient (BNVA) | payer OTHER, SELFPAY | PROVIDERS: PCP Internal Medicine; Visit Provider Nurse Practitioner Family | DX: K21.9 Gastro-esophageal reflux disease without esophagitis (principal) ==

== ENCOUNTER 2023-06-13 09:24 | Outpatient (AMB) | payer OTHER, SELFPAY ==
--- NOTE | 2023-06-13 09:26 | MHC.OFFVIS ---
Intake Vital Signs 06/13/23 09:27 Height 5 ft 6 in Weight 186 lb BMI 30.0 BP 130/80 Blood Pressure Location Rt brachial Position Sitting Pulse 57 Pulse Source Pulse Oximeter Pulse Oximetry (%) 99 Oxygen Delivery Method Room Air Intake Visit Reasons: 3m follow up Vertigo/Migraines-LVM Intake Note: Patient presents for 3 month follow up. Patient states Emgality is going good, I've noticed less headaches only noticed 2 severe ones. Allergies amoxicillin [Amoxicillin] Allergy (Severe, Verified 06/13/23 09:30) Rash/Hives coconut Allergy (Severe, Verified 06/13/23 09:30) Rash/Hives hazelnut Allergy (Severe, Verified 06/13/23 09:30) Rash/Hives Penicillins Allergy (Severe, Verified 06/13/23 09:30) Rash/Hives Sulfa (Sulfonamide Antibiotics) Allergy (Severe, Verified 06/13/23 09:30) Rash/Hives Latex, Natural Rubber Adverse Reaction (Severe, Verified 06/13/23 09:30) Blister From Lexapro Allergy (Severe, Uncoded 06/13/23 09:30) Rash/Hives From Prozac Allergy (Severe, Uncoded 06/13/23 09:30) Rash/Hives From Zoloft Allergy (Severe, Uncoded 06/13/23 09:30) Rash/Hives Medication List - Last Reconciled 06/13/23 by ASYA Delacruz albuterol sulfate 90 mcg/actuation inhalation dupilumab (Dupixent) 300 mg (2 mL) subcut Q2W galcanezumab-gnlm (Emgality Pen) 120 mg subcut ONCE 30 days ipratropium-albuterol 0.5 mg-3 mg(2.5 mg base)/3 mL 3 mL inhalation BID PRN 30 days levonorgestrel (Mirena) intrauterine lorazepam 0.5 mg PO DAILY PRN 30 days omeprazole 40 mg PO DAILY PRN riboflavin (vitamin B2) 400 mg (4 x 100 mg) PO DAILY 30 days scopolamine base 1 patch transdermal Q3D PRN 12 days Spiriva Respimat 2.5 mcg/actuation (tiotropium bromide) 2 puffs PO DAILY NS sumatriptan succinate 50 - 100 mg orally at onset of headache, may repeat in 2 hrs PRN; max 2 tabs per day or 4 tabs/week (may take with Ibuprofen) 60 days Symbicort 160-4.5 mcg/actuation (budesonide-formoterol) 2 puffs PO BID NS valacyclovir (Valtrex) 500 mg PO BID HPI HPI Comments History of Present Illness Details 42-yr-old female presents for f/u visit. Pt denies any significant interval medical changes. She has had 2 severe migraines following the 1st injection of Emgality, then 1 following her second injection. She is having some mild- mod headaches a/w stress work once significant atmosphere changes. Tolerating the Emgality well. Has Sumatriptan, which is helpful- has only needed to take it once since starting Emgality. She request refill of the [place] patch as she has an upcoming cruise. States it prevents motio sickness. Denies any bothersome s/e's. [facility] Medical History Asthma Asthma Asthma-COPD overlap syndrome MORALES (obstructive sleep apnea) Seasonal allergies Surgical History H/O cardiac catheterization History of section Family History Mother Skin cancer Hypertension Father H/O heart artery stent Skin cancer Paternal Aunt Breast cancer Brother Skin cancer Social History Housing: Apartment Alcohol intake: current Alcohol intake frequency: holidays/special occasions only Alcohol type: beer and wine Patient Tobacco Use Status: Former Tobacco user Tobacco use type: Cigarette Years Smoked: 11 years e-Cigarette/Vaping Use: Never Used Second Hand Smoke Exposure: No Substance Use Type: Marijuana service: No Current occupational status: employed Current occupational exposures/hazards: No Cognitive needs: No Hearing needs: No Vision needs: No Female Reproductive History Menstrual Age of Menarche: 13 Review of Systems Const All systems reviewed & are unremarkable except as noted in HPI and below Physical Exam Vital Signs: Last Vital Signs Pulse 57 06/13/23 09:27 BP 130/80 06/13/23 09:27 Pulse Ox 99 06/13/23 09:27 Oxygen Delivery Method Room Air 06/13/23 09:27 BMI result Body Mass Index 30.0 Const General: cooperative and no acute distress Orientation/consciousness: patient oriented x3 HEENT Head: Yes normocephalic Resp Effort & Inspection: normal respiratory effort and able to speak in complete sentences Neuro General: patient oriented x3, gait normal and CN's II-XI intact bilaterally Cognition (Neuro): normal cognition Motor exam (neuro): 5/5 motor strength present throughout Psych Appearance: grossly normal Mental Status: mental status grossly normal Speech and movement: Normal speech and movement present Affect: normal affect Attitude: cooperative Thought process: Normal thought process present Thought content: Normal thought content present Insight: Good insight present (Psych) Judgement: Good judgement present (Psych) Assessment & Plan Assessment & Plan (1) Migraines: Code(s): G43.909 - Migraine, unspecified, not intractable, without status migrainosus (2) Vertigo: Code(s): R42 - Dizziness and giddiness Plan For dizziness: Refilled prn Scopolamine patch. Re-consider PT if dizziness worsens. ? For overall headache management: Continue optimizing good self-care. For headache triggers: Track headaches Pt may benefit from work place accommodations- however her office is moving so will hold on this. ? For acute headache treatment: Sumatriptan to 50-100mg at onset of migraine, may repeat in 2 hrs. May adjunct w/ NSAID. Previous acute migraine medication trials: Excedrin- no longer effective Acute migraine medication contraindications: None at this time ? For headache prevention medication: Riboflavin 400mg daily in am. Magnesium 400mg daily at bedtime Emgality 120mg sc q month. . Previous migraine prevention medication trials: Topiramate caused mood changes and irritability. Candasertan 16mg- lightheadedness/unwell feeling. Migraine prevention medication contraindications: BBs d/t asthma dx. Amitriptyline- d/t h/o bipolar d/o. and pt not on any mood stabilization. ? f/u in 6 months or sooner prn. Medications: Refilled scopolamine base 1 patch transdermal Q3D 12 days PRN 4 ea 1RF nausea and vomiting R42 - Dizziness and giddiness Coding Level of Care Code Est Pt Level 4 (41539) Diagnoses Migraines G43.909 Vertigo R42
[2023-06-13 09:27] VITALS: BP 130/80; PULSE 57; O2SAT 99
== END 2023-06-13 09:46 | disposition home or self-care (01) ==
PROVIDERS: PCP Internal Medicine; Visit Provider Nurse Practitioner Family
DX: G43.909 Migraine, unspecified, not intractable, without status migrainosus (principal); R42 Dizziness and giddiness
CPT/HCPCS: 99214

== ENCOUNTER → 2023-06-13 09:24 | Outpatient (BNVA) | payer OTHER, SELFPAY | PROVIDERS: PCP Internal Medicine; Visit Provider Nurse Practitioner Family | DX: K21.9 Gastro-esophageal reflux disease without esophagitis (principal) ==

== ENCOUNTER 2023-09-11 08:44 | Outpatient (AMB) | payer OTHER, SELFPAY ==
[2023-09-11 08:52] VITALS: BP 126/80; BMI 32.4
--- NOTE | 2023-09-11 08:52 | MHC.PC.OV ---
Vital Signs 09/11/23 08:52 Height 5 ft 6 in Weight 201 lb BMI 32.4 BP 126/80 Blood Pressure Location Lt brachial Position Sitting Intake Visit Reasons: PE Intake Note: Patient here for a physical exam Recreation Facilities Supervisor Required: No Accompanied by: Self / Same As Patient Allergies amoxicillin [Amoxicillin] Allergy (Severe, Verified 09/11/23 09:04) Rash/Hives coconut Allergy (Severe, Verified 09/11/23 09:04) Rash/Hives hazelnut Allergy (Severe, Verified 09/11/23 09:04) Rash/Hives Penicillins Allergy (Severe, Verified 09/11/23 09:04) Rash/Hives Sulfa (Sulfonamide Antibiotics) Allergy (Severe, Verified 09/11/23 09:04) Rash/Hives Latex, Natural Rubber Adverse Reaction (Severe, Verified 09/11/23 09:04) Blister From Lexapro Allergy (Severe, Uncoded 09/11/23 09:04) Rash/Hives From Prozac Allergy (Severe, Uncoded 09/11/23 09:04) Rash/Hives From Zoloft Allergy (Severe, Uncoded 09/11/23 09:04) Rash/Hives Medication List - Last Reconciled 09/11/23 by Carri Hogan MD albuterol sulfate 90 mcg/actuation inhalation dupilumab (Dupixent) 300 mg (2 mL) subcut Q2W galcanezumab-gnlm (Emgality Pen) 120 mg subcut ONCE 30 days ipratropium-albuterol 0.5 mg-3 mg(2.5 mg base)/3 mL 3 mL inhalation BID PRN 30 days levonorgestrel (Mirena) intrauterine lorazepam 0.5 mg PO DAILY PRN 30 days omeprazole 40 mg PO DAILY 90 days scopolamine base 1 patch transdermal Q3D PRN 12 days Spiriva Respimat 2.5 mcg/actuation (tiotropium bromide) 2 puffs PO DAILY NS sumatriptan succinate 50 - 100 mg orally at onset of headache, may repeat in 2 hrs PRN; max 2 tabs per day or 4 tabs/week (may take with Ibuprofen) 60 days Symbicort 160-4.5 mcg/actuation (budesonide-formoterol) 2 puffs PO BID NS valacyclovir (Valtrex) 500 mg PO BID Tobacco use date assessed: 03/08/23 Dental Screening Dental Screen Date: 09/11/23 Did you have a dental visit in the last 12 months?: Yes Did you have a dental problem in the last 6 months where you did not have access to dental care?: No Was dental information given to patient?: Patient has dentist HPI HPI Comments History of Present Illness Details This is a 42-year-old female with asthma-COPD overlap syndrome that comes for her physical exam. Use rescue inhaler few times a month. Has not had a mammogram this year. Last Pap smear was October 2022. Has a skin lesion that itches since February 2023. [facility] Medical History (Updated 09/11/23 @ 09:18 by Carri Hogan MD) Asthma-COPD overlap syndrome MORALES (obstructive sleep apnea) Seasonal allergies Asthma Asthma Surgical History H/O cardiac catheterization History of section Family History Mother Skin cancer Hypertension Father H/O heart artery stent Skin cancer Paternal Aunt Breast cancer Brother Skin cancer Social History Housing: Apartment Alcohol intake: current Alcohol intake frequency: holidays/special occasions only Alcohol type: beer and wine Patient Tobacco Use Status: Former Tobacco user Tobacco use type: Cigarette Years Smoked: 11 years e-Cigarette/Vaping Use: Never Used Second Hand Smoke Exposure: No Substance Use Type: Marijuana service: No Current occupational status: employed Current occupational exposures/hazards: No Cognitive needs: No Hearing needs: No Vision needs: No Female Reproductive History Menstrual Age of Menarche: 13 Questionnaire Thrive Questionnaire Date Thrive assessed: 03/08/23 SCOOBY-7 AMB Questionnaire SCOOBY-7 Date SCOOBY - 7 assessed: 03/08/23 Source: Developed by Drs. Matthew Gracia, Daniella Arana, Arpit Watson and colleagues, with an educational juan c from [employer]. Review of Systems Const All systems reviewed & are unremarkable except as noted in HPI and below Eyes Reports no additional complaints, Denies change in vision and Denies other visual disturbances Card Denies chest pain at rest, Denies chest pain with activity, Denies edema, Denies irregular heart rhythm, Denies claudication, Denies dyspnea, Denies dyspnea on exertion, Denies orthopnea, Denies paroxysmal nocturnal dyspnea and Denies slow heart rate Resp Denies cough, Denies dyspnea and Denies dyspnea on exertion GI Denies abdominal pain, Denies change in bowel habits, Denies excessive flatus, Denies nausea and Denies vomiting Denies urinary incontinence, Denies urinary hesitancy and Denies urinary urgency Musc Denies abnormal gait, Denies atrophy, Denies deformity and Denies limited range of motion Skin/Breast Denies bleeding lesions, Reports changing lesions and Denies rash Neuro Denies abnormal gait, Denies behavioral changes, Denies confusion and Denies lack of coordination Psych Denies behavioral changes and Denies confusion Physical exam (Primary Care) Vital Signs: Last Vital Signs BP 126/80 09/11/23 08:52 BMI result Body Mass Index 32.4 Tobacco/Smoking Status: Tobacco use Status Tobacco use date assessed 03/08/23 09/11/23 08:56 Patient Tobacco Use Status Former Tobacco user 09/11/23 08:56 Tobacco use type Cigarette 09/11/23 08:56 e-Cigarette/Vaping Use Never Used 09/11/23 08:56 Thrive Assessment: Date of Thrive Assessment Date Thrive assessed 03/08/23 09/11/23 08:56 Const General: No confusion Orientation/consciousness: patient oriented x3 and No confusion HENMT Head: Yes normal to inspection, Yes normocephalic and Yes atraumatic Ears: external ears normal Eyes General: appearance normal, both eyes and all related structures Eyelids: Yes eyelids normal Conjunctivae: conjunctivae normal Neck Neck: Yes normal visual inspection and Yes supple Resp Effort & Inspection: normal respiratory effort Auscultation: clear to auscultation bilaterally Cardio Jugular venous distension: no JVD Rate: regular rate Rhythm: regular rhythm Heart sounds: S1 normal heart sound present and S2 normal heart sound present GI Inspection: Yes normal to inspection Palpation (GI): Soft to palpation and nontender Auscultation: normal bowel sounds Skin General skin exam: no rashes or lesions noted Neuro General: patient oriented x3, no focal motor deficits and No confusion Extrem General: Yes full ROM Psych Appearance: grossly normal Office Procedures Flu Questionnaire Does the patient have a severe egg allergy?: No Results AMB Urinalysis, Automated UA Leukoctes 0 Lacie/uL Last Edit by Rasheed Duran, RMA on 09/11/23 09:35 UA Nitrite Negative Last Edit by Rasheed Duran, RMA on 09/11/23 09:35 UA Urobilinogen 0.2 mg/dL Last Edit by Carritheodore Duran, RMA on 09/11/23 09:35 UA Protein 0 mg/dL Last Edit by Rasheed Duran, RMA on 09/11/23 09:35 UA pH 6.0 Last Edit by Rasheed Krishnaillo, RMA on 09/11/23 09:35 UA Blood 0 Jorge/uL Last Edit by Rasheed Krishnaillo, RMA on 09/11/23 09:35 UA Specific [place] 1.010 Last Edit by Rasheed Krishnaillo, RMA on 09/11/23 09:35 UA Ketone Negative Last Edit by Binralph Duran, RMA on 09/11/23 09:35 UA Bilirubin 0 mg/dL Last Edit by Rasheed Duran, RMA on 09/11/23 09:35 UA Glucose 0 mg/dL Last Edit by Rasheed Duran, RMA on 09/11/23 09:35 Immunizations flu vacc [id number] 6mos up(PF) 60 mcg(15 mcgx4)/0.5 mL IM syringe Performing Provider: Carri Hogan MD [facility] Documented (not given) by: SARAH Horan on 09/11/23 08:58 Reason Not Given: Patient Refused Results Reviewed Results Reviewed: Laboratory Last Values Urine pH (Auto) 6.0 09/11/23 09:32 Specific [place] (Auto) 1.010 09/11/23 09:32 Urine Protein (Auto) 0 mg/dL 09/11/23 09:32 Glucose (UA)(Auto) 0 mg/dL 09/11/23 09:32 Urine Ketones (Auto) Negative 09/11/23 09:32 Urine Blood (Auto) 0 Jorge/uL 09/11/23 09:32 Urine Nitrite (Auto) Negative 09/11/23 09:32 Urine Bilirubin (Auto) 0 mg/dL 09/11/23 09:32 Urine Urobilinogen (Auto) 0.2 mg/dL 09/11/23 09:32 Leukocyte Esterase (Auto) 0 Lacie/uL 09/11/23 09:32 Assessment and Plan Assessment & Plan (1) Physical exam: Code(s): Z00.00 - Encounter for general adult medical examination without abnormal findings Plan: Repeat in a year. (2) Asthma-COPD overlap syndrome: Code(s): J44.9 - Chronic obstructive pulmonary disease, unspecified Plan: Continue Symbicort. Orders: Orders Lipid Panel Today E78.5 - Hyperlipidemia, unspecified Comprehensive [place]. Panel Fast Today Z00.00 - Encounter for general adult medical examination without abnormal findings MM screening mammo BI Today Z12.31 - Encounter for screening mammogram for malignant neoplasm of breast Influenza [id number] Immunization Today Z23 - Encounter for immunization AMB Urinalysis Automated Today R35.89 - Other polyuria Referrals Ophthalmology Referral H53.8 - Other visual disturbances Urology Referral R35.89 - Other polyuria Medications: Refilled lorazepam 0.5 mg PO DAILY PRN 20 tabs 0RF anxiety 30 days omeprazole 40 mg PO DAILY 90 caps 1RF 90 days K21.9 - Gastro-esophageal reflux disease without esophagitis Coding Level of Care Code Est Pt Prev Care 40-64y(09586) Diagnoses Physical exam Z00.00 Asthma-COPD overlap syndrome J44.9 Time Spent (min) 32
== END 2023-09-11 09:22 | disposition home or self-care (01) ==
PROVIDERS: Visit Provider Internal Medicine
DX: Z00.00 Encounter for general adult medical examination without abnormal findings (principal); J44.9 Chronic obstructive pulmonary disease, unspecified; R35.89 Other polyuria
CPT/HCPCS: 81003; 99396

== ENCOUNTER 2023-10-25 09:43 | Outpatient (AMB) | payer OTHER, SELFPAY ==
[2023-10-25 09:47] VITALS: BP 128/70; PULSE 65; O2SAT 98; BMI 32.4
--- NOTE | 2023-10-25 09:47 | A.OFFVIS_ITS ---
Intake Vital Signs 10/25/23 09:47 Height 5 ft 6 in Weight 200 lb 13.458 oz BMI 32.4 BP 128/70 Blood Pressure Location Lt brachial Position Sitting Pulse 65 Pulse Source Pulse Oximeter Pulse Oximetry (%) 98 Oxygen Delivery Method Room Air Intake Visit Reasons: Dupixent Follow Up Hand Slitter Required: No Allergies amoxicillin [Amoxicillin] Allergy (Severe, Verified 10/25/23 09:50) Rash/Hives coconut Allergy (Severe, Verified 10/25/23 09:50) Rash/Hives hazelnut Allergy (Severe, Verified 10/25/23 09:50) Rash/Hives Penicillins Allergy (Severe, Verified 10/25/23 09:50) Rash/Hives Sulfa (Sulfonamide Antibiotics) Allergy (Severe, Verified 10/25/23 09:50) Rash/Hives Latex, Natural Rubber Adverse Reaction (Severe, Verified 10/25/23 09:50) Blister From Lexapro Allergy (Severe, Uncoded 10/25/23 09:50) Rash/Hives From Prozac Allergy (Severe, Uncoded 10/25/23 09:50) Rash/Hives From Zoloft Allergy (Severe, Uncoded 10/25/23 09:50) Rash/Hives HPI HPI Comments History of Present Illness Details The patient is a 43-year-old woman with a known history of asthma and significant allergies. For the last year and a half she has been having worsening respiratory symptoms. She has been following closely with Pulmonary at [facility]. However, her symptoms have been getting worse and she has not been able to get in for an appointment. Therefore she has had to go to the ER in urgent care for her care. She has been on multiple inhalers initially on Flovent. more recently she was switched over to Advair Diskus and also given singular. Due to her significant history of bipolar she has been worried about using steroids and also using the singular medication because of the potential adverse effects. She has required multiple courses of prednisone tapers because the significant wheezing. In view of her ongoing symptoms he can last week which she was again given prednisone. Her blood work was relatively normal and her x-ray was personally reviewed by me demonstrating no acute disease. On further questioning she states that she had allergy testing in the past with significant allergies noted at the time. She was not offered any allergy shots at that time. In addition to that she was a smoker in the past but no longer. Her significant other does smoke although he has quitting in he also owns a cat that she has no she is allergic to. She denies any mold or any other exposures in her household that she is aware of. In the office today she was found to be significantly wheezy both during the inspiratory in the expert or E phase. She did received 2 DuoNeb treatments with complete resolution or wheezing which is reassuring. The patient is currently on prednisone taper. she has 1 more dose to finished a taper which will be tomorrow. 09/14/2022 the patient is here for a pulmonary follow-up visit. The patient overall is doing well. The Dupixent injections have been very helpful. Sometimes she forgets and she does not take the Dupixent as prescribed. Explained to her that she needs taking regularly in order for the effect of the medication to be maximized. Indeed by taking every 2 weeks there is going to be less inflammation to the airways and more healing will take place. Therefore, patient will start doing so. She continues to use her respiratory inhalers as prescribed. The patient has not required any prednisone which is reassuring. Patient also has been practicing positional therapy. She can no longer use her CPAP so therefore she will return it. Sleeping on her side be helpful to minimize snoring. We also talked about considering a mandibular advancing device that she can get from her dentist. 10/25/2023 the patient is here for a pulm onary follow-up visit. The patient overall has been doing well. She has been very active. She has been exercising in participating in [employer] [place]. The Dupixent injection has been very affecting beneficial for her. She does take it every 2 weeks because after those 2 weeks she starts getting symptomatic if she does not take it. She still requires her Symbicort and her Spiriva. These medications been also affecting beneficial. She has not had any flare-ups in not needed any prednisone since she has been on Dupixent. The patient has been having some issues with snoring and waking up with snoring. She did visit her dentist and she is going to consider an elastic mandibular device and positional therapy. The patient will continue with current respiratory therapy and will follow-up in a year's time. [facility] Medical History Asthma-COPD overlap syndrome MORALES (obstructive sleep apnea) Seasonal allergies Asthma Asthma Surgical History H/O cardiac catheterization History of section Family History Mother Skin cancer Hypertension Father H/O heart artery stent Skin cancer Paternal Aunt Breast cancer Brother Skin cancer Social History Housing: Apartment Alcohol intake: current Alcohol intake frequency: holidays/special occasions only Alcohol type: beer and wine Patient Tobacco Use Status: Former Tobacco user Tobacco use type: Cigarette Years Smoked: 11 years e-Cigarette/Vaping Use: Never Used Second Hand Smoke Exposure: No Substance Use Type: Marijuana service: No Current occupational status: employed Current occupational exposures/hazards: No Cognitive needs: No Hearing needs: No Vision needs: No Female Reproductive History Menstrual Age of Menarche: 13 Review of Systems Const Denies body aches, Denies chills, Reports daytime sleepiness, Denies fever(s) and Denies headache(s) Eyes Denies change in vision ENT Denies dizziness, Denies otalgia, Denies headache(s), Denies nasal discharge, Denies sinus pain and Denies sore throat Card Denies chest pain, Denies edema, Denies lightheadedness and Denies dyspnea Resp Denies chest congestion, Reports cough and Denies dyspnea GI Denies abdominal pain, Denies constipation, Denies diarrhea, Denies nausea and Denies vomiting Denies dysuria Musc Denies myalgias, Denies numbness and Denies tingling Skin/Breast Denies lesions and Denies rash Neuro Denies dizziness, Denies headache(s), Denies numbness and Denies tingling Physical Exam Vital Signs: Last Vital Signs Pulse 65 10/25/23 09:47 BP 128/70 10/25/23 09:47 Pulse Ox 98 10/25/23 09:47 Oxygen Delivery Method Room Air 10/25/23 09:47 BMI result Body Mass Index 32.4 Const General: alert HEENT Face and sinus: Yes face symmetric, Yes sinus tenderness and Yes Facial tenderness on exam of face and sinuses Neck Neck: Yes normal visual inspection, Yes full ROM and Yes no lymphadenopathy Chest Chest palpation & inspection: normal inspection of the chest Resp Effort & Inspection: normal respiratory effort Auscultation: no wheezes and diminished lung sounds Cardio Rate: regular rate Rhythm: regular rhythm Heart sounds: S1 normal heart sound present and S2 normal heart sound present GI Palpation (GI): Soft to palpation and nontender Auscultation: normal bowel sounds Skin General skin exam: rashes and/or lesions noted Assessment & Plan Assessment & Plan (1) Asthma: Code(s): J45.909 - Unspecified asthma, uncomplicated Qualifiers: Asthma complication type: uncomplicated Asthma persistence: persistent Asthma severity: severe Qualified Code(s): J45.50 - Severe persistent asthma, uncomplicated (2) Seasonal allergies: Code(s): J30.2 - Other seasonal allergic rhinitis (3) MORALES (obstructive sleep apnea): Code(s): G47.33 - Obstructive sleep apnea (adult) (pediatric) Plan Continue Dupixent SC every 2 weeks continue DuoNeb 2 to 4 times a day as needed Symbicort 2 puffs twice a day continue Spiriva daily Consider positional therapy and mandibular advancement device. Follow-up in 12 months Coding Level of Care Code Est Pt Level 4 (78324) Diagnoses Severe persistent asthma without complication J45.50 Asthma complication type: uncomplicated Asthma persistence: persistent Asthma severity: severe Seasonal allergies J30.2 MORALES (obstructive sleep apnea) G47.33 Time Spent (min) 17
== END 2023-10-25 10:24 | disposition home or self-care (01) ==
PROVIDERS: PCP Internal Medicine; Visit Provider Hospitalist
DX: J45.50 Severe persistent asthma, uncomplicated (principal); J30.2 Other seasonal allergic rhinitis; G47.33 Obstructive sleep apnea (adult) (pediatric)
CPT/HCPCS: 99214

== ENCOUNTER → 2023-10-25 09:43 | Outpatient (BNVA) | payer OTHER, SELFPAY | PROVIDERS: PCP Internal Medicine; Visit Provider Hospitalist ==

== ENCOUNTER 2024-01-30 08:53 | Outpatient (REF) | payer OTHER, SELFPAY ==
[2024-01-30 14:33] LABS: CT PCR NOT DETECTED (Not Detect.); NG PCR NOT DETECTED (Not Detect.)
[2024-01-31 09:26] LABS: BV Int Neg Control Negative (Negative); BV Int Pos Control Positive (Positive)
== END 2024-01-30 08:54 | disposition home or self-care (01) ==
LOC: HO.LAB 08:53
PROVIDERS: PCP Internal Medicine; Visit Provider Advanced Practice Midwife
DX: Z01.419 Encounter for gynecological examination (general) (routine) without abnormal findings (principal); Z20.2 Contact with and (suspected) exposure to infections with a predominantly sexual mode of transmission
CPT/HCPCS: 0353U; 87480; 87510; 87660

== ENCOUNTER 2024-01-30 08:53 | Outpatient (AMB) | payer OTHER, SELFPAY ==
--- NOTE | 2024-01-30 08:57 | MHC.OFFVIS ---
Vital Signs 01/30/24 08:58 Height 5 ft 6 in Weight 185 lb BMI 29.9 BP 114/76 Intake Visit Reasons: PROPERTY CLAIM REP annual exam Intake Note: pt wants std testing, skin tag gets irritating when running Grade Foreman: Grade Foreman Present (Camelia) Allergies amoxicillin [Amoxicillin] Allergy (Severe, Verified 01/30/24 08:58) Rash/Hives coconut Allergy (Severe, Verified 01/30/24 08:58) Rash/Hives hazelnut Allergy (Severe, Verified 01/30/24 08:58) Rash/Hives Penicillins Allergy (Severe, Verified 01/30/24 08:58) Rash/Hives Sulfa (Sulfonamide Antibiotics) Allergy (Severe, Verified 01/30/24 08:58) Rash/Hives Latex, Natural Rubber Adverse Reaction (Severe, Verified 01/30/24 08:58) Blister From Lexapro Allergy (Severe, Uncoded 10/25/23 09:50) Rash/Hives From Prozac Allergy (Severe, Uncoded 10/25/23 09:50) Rash/Hives From Zoloft Allergy (Severe, Uncoded 10/25/23 09:50) Rash/Hives HPI Comments Details: She is a premenopausal woman presenting for annual examination. Doing well with concerns: Skin tag external-aggravated with running, episode of bleeding with Mirena(known IUD strings missing last ultrasound at [facility] reported was positioned properly, records were not sent from last year's request), new intimate partner, refill on Valtrex. History of PTSD. She tries to eat healthy and stays active with exercise-she runs. She denies vaginal itching and irritation. STI screening offered; she accepts. Declines blood work. Denies family history of ovarian or colon cancer. Family history of breast cancer. Last pap smear 2022, negative. Mammogram: Not up-to-date. [facility] Medical History (Updated 01/30/24 @ 09:09 by SARAH Means) BRCA negative Asthma-COPD overlap syndrome MORALES (obstructive sleep apnea) Seasonal allergies Asthma Asthma Surgical History H/O cardiac catheterization History of section Family History (Updated 01/30/24 @ 09:08 by Tayler M Mendrala, RMA) Mother Skin cancer Hypertension Father H/O heart artery stent Skin cancer Paternal Aunt Breast cancer Brother Skin cancer Family/Other Breast cancer Social History (Updated 01/30/24 @ 13:46 by Inez Rios CNM) Housing: Apartment Alcohol intake: current Alcohol intake frequency: holidays/special occasions only Alcohol type: beer and wine Patient Tobacco Use Status: Former Tobacco user Tobacco use type: Cigarette Years Smoked: 11 years e-Cigarette/Vaping Use: Never Used Second Hand Smoke Exposure: No Substance Use Type: Marijuana service: No Current occupational status: employed 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 Current occupational exposures/hazards: No Cognitive needs: No Hearing needs: No Vision needs: No Female Reproductive History Menstrual Age of Menarche: 13 control method: progestin IUCD (Mirena Fall 2018) Total pregnancies: 3 Full term: 1 Number of Living Children: 1 Ab induced: 1 Ab spontaneous: 1 Date of last pap smear: 10/25/22 (neg pap and hpv) Review of Systems Const All systems reviewed & are unremarkable except as noted in HPI and below Reports as per HPI Eyes Reports no additional complaints ENT Reports no additional complaints Card Reports no additional complaints Resp Reports no additional complaints GI Reports as per HPI and Reports no additional complaints Reports as per HPI Musc Reports no additional complaints Skin/Breast Reports as per HPI Neuro Reports no additional complaints Psych Reports no additional complaints Endo Reports no additional complaints Alexis/Lymph Reports no additional complaints Aller/Immun Reports no additional complaints Physical Exam Vital Signs: Last Vital Signs BP 114/76 01/30/24 08:58 BMI result Body Mass Index 29.9 Const Other: Tearful discussing concerns today due to trauma history. General: cooperative, healthy appearing, no acute distress, well developed and alert Orientation/consciousness: patient oriented x3 HEENT Head: Yes normal to inspection Eyes General: appearance normal, both eyes and all related structures Neck Neck: Yes normal visual inspection Thyroid: Thyroid normal Chest Chest palpation & inspection: normal inspection of the chest and other (no puckering, dimpling, peau de orange, retraction, discharge, masses) Breast/axilla inspection: normal inspection of the breasts Breast/axilla palpation: normal palpation of the breasts Resp Effort & Inspection: normal respiratory effort GI Inspection: Yes normal to inspection Palpation (GI): Soft to palpation Rectal Exam - Female: deferred Other: Small skin tag on mons area General: Yes bladder normal to palpation External Female Exam: normal external appearance and normal appearance of the urethra Speculum Exam - Vagina: normal appearance of the vagina, normal palpation and normal vaginal discharge Speculum Exam - Cervix: normal appearance of the cervix and normal palpation Bimanual exam- vagina & uterus: normal bimanual exam, normal palpation, uterine size normal, bladder normal to palpation, normal palpation and non-tender Bimanual Exam- Adnexa, other: no masses Skin General skin exam: no rashes or lesions noted Rashes: no rashes Neuro General: patient oriented x3 Cognition (Neuro): normal cognition Extrem General: Yes normal to inspection Psych Attitude: cooperative Thought process: Normal thought process present Assessment & Plan Assessment & Plan (1) Encounter for well woman exam with routine gynecological exam: Code(s): Z01.419 - Encounter for gynecological examination (general) (routine) without abnormal findings Plan Discussed: Current recommendations for pap smears per ASCCP guidelines. Breast awareness and periodic breast exams. Maintain a healthy lifestyle including a well balanced diet and routine exercise. Use condoms for STI and prevention. Mammogram yearly. Records from [facility] 2nd request for ultrasound records secondary to missing IUD string. Defer pelvic ultrasound due to patient trauma history. UPT negative today. Declines offer to have skin tag removed, not comfortable seeing male provider, declines referral to female Dermatology or to [facility] due to trauma history in it admittedly difficulty adjusting to a new provider. Advised to not shave to wear cool, loose clothing to prevent any rubbing or irritation to the skin tag. Patient verbalizes understanding and agrees to the plan of care. She was given opportunity to ask questions and all questions were answered to the best of my ability. 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 This note is constructed using voice recognition software. While every effort has been made to ensure accuracy, consulting manager errors may have been included. Orders: Orders MM tomosynthesis screening BI Today Z12.31 - Encounter for screening mammogram for malignant neoplasm of breast Bacterial Vaginosis Panel Today Z20.2 - Contact with and (suspected) exposure to infections with a predominantly sexual mode of transmission CT NG by PCR Today Z20.2 - Contact with and (suspected) exposure to infections with a predominantly sexual mode of transmission Medications: Refilled valacyclovir (Valtrex) take with onset on of symptoms, take for three days, may repeat dosing per episode prn 500 mg PO BID 90 tabs 2RF Coding Level of Care Code Est Pt Prev Care 40-64y(00007) Diagnoses Encounter for well woman exam with routine gynecological exam Z01.419
[2024-01-30 08:58] VITALS: BP 114/76; BMI 29.9
== END 2024-01-30 09:59 | disposition home or self-care (01) ==
PROVIDERS: PCP Internal Medicine; Visit Provider Advanced Practice Midwife
DX: Z01.419 Encounter for gynecological examination (general) (routine) without abnormal findings (principal)
CPT/HCPCS: 99396

== ENCOUNTER 2024-01-30 09:39 | Outpatient (REF) | payer OTHER, SELFPAY | END 2024-01-30 09:40 | disposition home or self-care (01) | LOC: HO.LNP 09:39 | PROVIDERS: Visit Provider Advanced Practice Midwife | DX: Z13.89 Encounter for screening for other disorder (principal) ==

== ENCOUNTER → 2024-04-04 11:27 | Outpatient (AMB) | payer OTHER, SELFPAY ==
--- NOTE | 2024-04-04 11:42 | AM.OFFWIN_ITS ---
Intake Vital Signs 3 04/04/24 11:49 Weight 174 lb 8 oz BP 132/72 Blood Pressure Location Rt brachial Position Sitting Respiration 16 Pulse 74 Pulse Source Pulse Oximeter Temp 97.8 F Temp Source Temporal Artery Scan Pulse Oximetry (%) 98 Oxygen Delivery Method Room Air Intake Visit Reasons: Left hand dog bite Intake Note: patient here for small dog bite on left pointer finger and rash under arm. Patient Tobacco Use Status: Former Tobacco user Customer Success Representative Required: No Is last menstrual period known: Yes Last menstrual period: 03/15/24 Post menopausal: No Patient : No Allergies amoxicillin [Amoxicillin] Allergy (Severe, Verified 04/04/24 12:29) Rash/Hives coconut Allergy (Severe, Verified 04/04/24 12:29) Rash/Hives hazelnut Allergy (Severe, Verified 04/04/24 12:29) Rash/Hives Penicillins Allergy (Severe, Verified 04/04/24 12:29) Rash/Hives Sulfa (Sulfonamide Antibiotics) Allergy (Severe, Verified 04/04/24 12:29) Rash/Hives Latex, Natural Rubber Adverse Reaction (Severe, Verified 04/04/24 12:29) Blister From Lexapro Allergy (Severe, Uncoded 10/25/23 09:50) Rash/Hives From Prozac Allergy (Severe, Uncoded 10/25/23 09:50) Rash/Hives From Zoloft Allergy (Severe, Uncoded 10/25/23 09:50) Rash/Hives Medication List - Last Reconciled 04/04/24 by Sonya Yousif, KITCHENHAND- albuterol sulfate 90 mcg/actuation inhalation dupilumab (Dupixent) 300 mg (2 mL) subcut Q2W galcanezumab-gnlm (Emgality Pen) 120 mg subcut ONCE 30 days ipratropium-albuterol 0.5 mg-3 mg(2.5 mg base)/3 mL 3 mL inhalation BID PRN 30 days levonorgestrel (Mirena) intrauterine lorazepam 0.5 mg PO DAILY PRN 30 days omeprazole 40 mg PO DAILY 90 days Spiriva Respimat 2.5 mcg/actuation (tiotropium bromide) 2 puffs PO DAILY NS Symbicort 160-4.5 mcg/actuation (budesonide-formoterol) 2 puffs PO BID NS tirzepatide (weight loss) (Zepbound) 2.5 mg subcut QWEEK valacyclovir (Valtrex) 500 mg PO BID Do you need a note to return to daycare/school/sports/work: Yes HPI HPI Comments 2 History of Present Illness0 Details 43-year-old female here today on worker' s comp. She works with the [employer] of [employer]. During a home visit today she was bit by a dog on her left hand, injuring her left index finger. There is a break in the skin. She immediately rinsed the area with soap and water. She reports that she has been in contact with the family who state that the dog is healthy and up-to-date on vaccinations. Her last Tdap was about 13 years ago. Plan Tdap administered today Discussed rabies protocol, mutual decision-making against this. Prophylactic treatment with doxycycline 100 mg p.o. b.i.d.. As she has allergies to penicillin as well as to sulfa. She did ask for an antiemetic as she reports severe GI upset to include nausea and vomiting with most antibiotics. Therefore Zofran p.r.n. has also been sent in. She should continue to wash her hand with soap and water. Cover the very small wound with a Band-Aid if entering a dirty environment. Otherwise this should resolve without any further incident. Work note provided for her to remain out of work the rest of the day. She may return tomorrow. This note is constructed using voice recognition software. While every effort has been made to ensure accuracy in manager technical support, still errors may have been included Sometimes, these errors may affect the content or meaning of the given sentence . [facility] Medical History IUD surveillance BRCA negative Asthma-COPD overlap syndrome MORALES (obstructive sleep apnea) Seasonal allergies Asthma Asthma Surgical History History of loop electrical excision procedure (LEEP) H/O cardiac catheterization History of section Family History Mother Skin cancer Hypertension Father H/O heart artery stent Skin cancer Paternal Aunt Breast cancer Brother Skin cancer Family/Other Breast cancer Social History Housing: Apartment Alcohol intake: current Alcohol intake frequency: holidays/special occasions only Alcohol type: beer and wine Patient Tobacco Use Status: Former Tobacco user Tobacco use type: Cigarette Years Smoked: 11 years e-Cigarette/Vaping Use: Never Used Second Hand Smoke Exposure: No Substance Use Type: Marijuana service: No Current occupational status: employed 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 pin hole break in skin, no blood or erythema. consistent w/ bite from small animal. No bony involvement. FROM, neurovasc intact. Assessment & Plan Assessment & Plan (1) Dog bite of left hand: Code(s): S61.452A - Open bite of left hand, initial encounter; W54.0XXA - Bitten by dog, initial encounter Qualifiers: Encounter type: initial encounter Qualified Code(s): S61.452A - Open bite of left hand, initial encounter; W54.0XXA - Bitten by dog, initial encounter Plan: . Plan . Orders: Orders 2 TDaP Immunization Today Z23 - Encounter for immunization Medications: New 2 ondansetron HCl 4 mg PO Q8H PRN 15 tabs 0RF nausea and vomiting 3 days doxycycline hyclate 100 mg PO BID 14 caps 0RF 7 days Coding Level of Care Code Est Pt Level 3 (76179) Diagnoses Dog bite of left hand, initial encounter S61.452A; W54.0XXA Encounter type: initial encounter
[2024-04-04 11:49] VITALS: BP 132/72; PULSE 74; RESP 16; TEMP 36.6; O2SAT 98
== END ==
PROVIDERS: PCP Internal Medicine; Visit Provider Nurse Practitioner Family
DX: S61.452A Open bite of left hand, initial encounter (principal); W54.0XXA Bitten by dog, initial encounter; Z04.2 Encounter for examination and observation following work accident
CPT/HCPCS: 90471; 90715; 99213

== ENCOUNTER 2024-04-04 12:25 | Outpatient (AMB) | payer OTHER, SELFPAY ==
--- NOTE | 2024-04-04 12:29 | AM.OFFWIN_ITS ---
Intake Vital Signs 04/04/24 12:34 Height 5 ft 6 in Weight 174 lb 8 oz BMI 28.2 BP 132/72 Blood Pressure Location Rt brachial Position Sitting Respiration 16 Pulse 74 Pulse Source Pulse Oximeter Pulse Oximetry (%) 98 Oxygen Delivery Method Room Air Intake Visit Reasons: rash and anxiety Patient Tobacco Use Status: Former Tobacco user Allergies amoxicillin [Amoxicillin] Allergy (Severe, Verified 04/04/24 12:29) Rash/Hives coconut Allergy (Severe, Verified 04/04/24 12:29) Rash/Hives hazelnut Allergy (Severe, Verified 04/04/24 12:29) Rash/Hives Penicillins Allergy (Severe, Verified 04/04/24 12:29) Rash/Hives Sulfa (Sulfonamide Antibiotics) Allergy (Severe, Verified 04/04/24 12:29) Rash/Hives Latex, Natural Rubber Adverse Reaction (Severe, Verified 04/04/24 12:29) Blister From Lexapro Allergy (Severe, Uncoded 10/25/23 09:50) Rash/Hives From Prozac Allergy (Severe, Uncoded 10/25/23 09:50) Rash/Hives From Zoloft Allergy (Severe, Uncoded 10/25/23 09:50) Rash/Hives Medication List - Last Reconciled 04/04/24 by ASYA Allison- albuterol sulfate 90 mcg/actuation inhalation dupilumab (Dupixent) 300 mg (2 mL) subcut Q2W galcanezumab-gnlm (Emgality Pen) 120 mg subcut ONCE 30 days ipratropium-albuterol 0.5 mg-3 mg(2.5 mg base)/3 mL 3 mL inhalation BID PRN 30 days levonorgestrel (Mirena) intrauterine lorazepam 0.5 mg PO DAILY PRN 30 days omeprazole 40 mg PO DAILY 90 days Spiriva Respimat 2.5 mcg/actuation (tiotropium bromide) 2 puffs PO DAILY NS Symbicort 160-4.5 mcg/actuation (budesonide-formoterol) 2 puffs PO BID NS tirzepatide (weight loss) (Zepbound) 2.5 mg subcut QWEEK valacyclovir (Valtrex) 500 mg PO BID Do you need a note to return to daycare/school/sports/work: No HPI HPI Comments History of Present Illness Details 43-year-old female here today with chief complaints of anxiety and a rash. She reports that she has had increased life stressors. She is routine follow up by her primary care provider in uses lorazepam 0.5 mg as needed sparingly. She reports that she only has 1 tablet left & is requesting a refill. IMPLEMENTATION SERVICES ANALYST reviewed. No signs of abuse. She also reports that she has a rash under bilat armpits. It is red and itchy. Has not tried any at home remedies. Exam Fungal rash bilat axilla, left worse than right Mildly anxious yet pleasant and appropriate Plan Topical antifungal cream as well as powder use until cleared. Keep skin clean warm and dry. Lorazepam refill sent. This note is constructed using voice recognition software. While every effort has been made to ensure accuracy in licensed plumber, still errors may have been included Sometimes, these errors may affect the content or meaning of the given sentence . Total time spent caring for the patient today was 30 minutes. This includes time spent before the visit reviewing the chart, time spent during the visit, and time spent after the visit on documentation PFSH Medical History IUD surveillance BRCA negative Asthma-COPD overlap syndrome MORALES (obstructive sleep apnea) Seasonal allergies Asthma Asthma Surgical History History of loop electrical excision procedure (LEEP) H/O cardiac catheterization History of section Family History Mother Skin cancer Hypertension Father H/O heart artery stent Skin cancer Paternal Aunt Breast cancer Brother Skin cancer Family/Other Breast cancer Social History Housing: Apartment Alcohol intake: current Alcohol intake frequency: holidays/special occasions only Alcohol type: beer and wine Patient Tobacco Use Status: Former Tobacco user Tobacco use type: Cigarette Years Smoked: 11 years e-Cigarette/Vaping Use: Never Used Second Hand Smoke Exposure: No Substance Use Type: Marijuana service: No Current occupational status: employed 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 (2) Anxiety: Code(s): F41.9 - Anxiety disorder, unspecified Plan: . Plan . Medications: New nystatin 1 appl topical DAILY 60 grams 0RF nystatin apply to affected area 1 appl topical TID 30 days 30 grams 0RF Refilled lorazepam 0.5 mg PO DAILY 30 days PRN 20 tabs 0RF anxiety Coding Level of Care Code Est Pt Level 4 (55355) Diagnoses Fungal rash of torso B36.9 Anxiety F41.9
[2024-04-04 12:34] VITALS: BP 132/72; PULSE 74; RESP 16; O2SAT 98; BMI 28.2
== END 2024-04-04 14:50 | disposition home or self-care (01) ==
LOC: HO.HMGFM 12:25
PROVIDERS: PCP Internal Medicine; Visit Provider Nurse Practitioner Family
DX: B36.9 Superficial mycosis, unspecified (principal); F41.9 Anxiety disorder, unspecified
CPT/HCPCS: 99214

== ENCOUNTER 2024-05-24 09:24 | Outpatient (REF) | payer OTHER, SELFPAY ==
[2024-05-24 12:05] LABS: Alanine Aminotransferase 12 U/L (0-31); Albumin Level 4.6 g/dL (3.5-5.0); Alkaline Phosphatase 36 U/L (39-117); Anion Gap 10 (12-20); Aspartate Amino Transferase 18 U/L (5-31); Bilirubin Total 0.4 mg/dL (0.0-1.0); Blood Urea Nitrogen 12 mg/dL (9-16); Calcium 9.7 mg/dL (8.4-10.2); Carbon Dioxide 25 mmol/L (22-29); Chloride 106 mmol/L (96-108); Cholesterol 180 mg/dL (<200); Estimated Glomerular Filt Rate > 60; Glucose Fasting 110 mg/dL (60-99); HDL Cholesterol 59 mg/dL (>40); LDL Cholesterol Calculated 110 mg/dL (<100); Potassium 4.1 mmol/L (3.3-5.1); Sodium 137 mmol/L (135-145); Total Protein 7.7 g/dL (6.5-8.0); Triglycerides 56 mg/dL (<150)
== END 2024-05-24 09:25 | disposition home or self-care (01) ==
LOC: HO.WFDLDS 09:24
PROVIDERS: Visit Provider Internal Medicine
DX: Z00.00 Encounter for general adult medical examination without abnormal findings (principal); E78.5 Hyperlipidemia, unspecified
CPT/HCPCS: 36415; 80053; 80061

== ENCOUNTER 2024-09-16 08:59 | Outpatient (AMB) | payer OTHER, SELFPAY ==
--- NOTE | 2024-09-16 09:04 | A.OFFPC_ITS ---
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 Accompanied by: Self / Same As Patient Allergies amoxicillin [Amoxicillin] Allergy (Severe, Verified 09/16/24 09:17) Rash/Hives coconut Allergy (Severe, Verified 09/16/24 09:17) Rash/Hives hazelnut Allergy (Severe, Verified 09/16/24 09:17) Rash/Hives Penicillins Allergy (Severe, Verified 09/16/24 09:17) Rash/Hives Sulfa (Sulfonamide Antibiotics) Allergy (Severe, Verified 09/16/24 09:17) Rash/Hives Latex, Natural Rubber Adverse Reaction (Severe, Verified 09/16/24 09:17) Blister From Lexapro Allergy (Severe, Uncoded 09/16/24 09:17) Rash/Hives From Prozac Allergy (Severe, Uncoded 09/16/24 09:17) Rash/Hives From Zoloft Allergy (Severe, Uncoded 09/16/24 09:17) Rash/Hives Medication List - Last Reconciled 09/16/24 by Carri Hogan MD albuterol sulfate 90 mcg/actuation inhalation dupilumab (Dupixent) 300 mg (2 mL) subcut Q2W galcanezumab-gnlm (Emgality Pen) 120 mg subcut ONCE 30 days ipratropium-albuterol 0.5 mg-3 mg(2.5 mg base)/3 mL 3 mL inhalation BID PRN 30 days levonorgestrel (Mirena) intrauterine lorazepam 0.5 mg PO DAILY PRN 30 days omeprazole 40 mg PO DAILY 90 days Spiriva Respimat 2.5 mcg/actuation (tiotropium bromide) 2 puffs PO DAILY NS Symbicort 160-4.5 mcg/actuation (budesonide-formoterol) 2 puffs PO BID NS tirzepatide (weight loss) (Zepbound) 2.5 mg subcut QWEEK valacyclovir (Valtrex) 500 mg PO BID Tobacco use date assessed: 09/16/24 Dental Screening Dental Screen Date: 09/16/24 Did you have a dental visit in the last 12 months?: Yes Did you have a dental problem in the last 6 months where you did not have access to dental care?: No Was dental information given to patient?: Patient has dentist HPI HPI Comments History of Present Illness Details The patient is a 43-year-old female presenting for her physical exam. She has depression and anxiety, for which she seeks a refill of her anxiety medication. She experiences increased symptoms seasonally, with a recent worsening characterized by feelings of low energy, increased need for sleep, and irritability. There is a noted family history of early onset menopause, which she suspects might contribute to her symptoms. She manages her anxiety through exercise, practicing yoga, and other physical activities twice daily. Her depression is considered to worsen with seasonal changes, and she has previously sought controls for these symptoms. A recent fasting blood glucose level indicated pre-diabetes, prompting a discussion on reducing risk factors. Last Tdap vaccine was 2023. Mammogram was over a year ago and will be ordered. Pap smear was 2022 and HPV was negative. - Pap smear (2022): normal - HPV test (2022): negative - Tdap vaccine administered in 2023 foll owing a dog bite - Regular monitoring of pre-diabetes due to elevated fasting glucose - Discussion about the necessity of flu vaccination but patient declines it. - Previous mammogram date unknown; advis ed scheduling if it has been over a year - Cholesterol levels previously reported as normal; no immediate need for re- assessment - Exercise: Yoga and additional physical activity twice daily PFSH Medical History IUD surveillance BRCA negative Asthma-COPD overlap syndrome MORALES (obstructive sleep apnea) Seasonal allergies Asthma Asthma Surgical History History of loop electrical excision procedure (LEEP) H/O cardiac catheterization History of section Family History Mother Skin cancer Hypertension Father H/O heart artery stent Skin cancer Paternal Aunt Breast cancer Brother Skin cancer Family/Other Breast cancer Social History Housing: Apartment Alcohol intake: current Alcohol intake frequency: holidays/special occasions only Alcohol type: beer and wine Patient Tobacco Use Status: Former Tobacco user Tobacco use type: Cigarette Years Smoked: 11 years e-Cigarette/Vaping Use: Never Used Second Hand Smoke Exposure: No Substance Use Type: Marijuana service: No Current occupational status: employed 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 1. Little interest or pleasure in doing things: several days 2. Feeling down, depressed, or hopeless: several days 3. Trouble falling or staying asleep, or sleeping too much: several days 4. Feeling tired or having little energy: several days 5. Poor appetite or overeating: not at all 6. Feeling bad about yourself - or that you are a failure or have let yourself or your family down: not at all 7. Trouble concentrating on things, such as reading the newspaper or watching television: not at all 8. Moving or speaking so slowly that other people could have noticed. Or the opposite - being so fidgety or restless that you have been moving around a lot more than usual: not at all 9. Thoughts that you would be better off or of hurting yourself in some way: not at all Total score: 4 Depression Screening Interpretation: Positive Depression Screening Follow-up: Existing condition and Follow-up Visit Requested Depression Screening Done: Yes 79342 - PHQ-9 Billing: Yes Source: Developed by Drs. Matthew Gracia, Daniella Arana, Arpit Watson and colleagues, with an educational juan c from [employer]. Thrive Questionnaire Date Thrive assessed: 09/16/24 I am a: Patient What is your living situation today?: I have a steady place to live Within the past 12 months, did the food you bought not last and you didn't have the money to get more?: Never true Within the past 12 months, did you worry whether your food would run out before you got money to buy more?: I choose not to answer this question Do you have trouble paying for medicines?: I choose not to answer this question Do you have trouble getting transportation to medical appointments?: I choose not to answer this question Do you have trouble paying your heating and electricity bill?: I choose not to answer this question Do you have trouble taking care of your child, family member or friend?: I choose not to answer this question Do you have trouble with day-to-day activities such as bathing, preparing meals, shopping, managing finances, etc.?: I choose not to answer this question Are you currently unemployed and looking for a job?: I choose not to answer this question Are you interested in more education?: I choose not to answer this question Please select the resources that you would like help with: None Currently or been in a relationship where the following occur: I choose not to answer THRIVE Score: 0 AUDIT C Alcohol Use Questionnaire (AUDIT-C) 1. How often do you have a drink containing alcohol?: Never Total Score: 0 Score Reviewed/Action Taken: No SCOOBY-7 AMB Questionnaire SCOOBY-7 Date SCOOBY - 7 assessed: 09/16/24 Feeling nervous, anxious, or on edge: 1 = Several days Not being able to stop or control worryin = Not at all Worrying too much about different things: 0 = Not at all Trouble relaxin = Not at all Being so restless that it is hard to sit still: 0 = Not at all Becoming easily annoyed or irritable: 1 = Several days Feeling afraid as if something awful might happen: 0 = Not at all Total SCOOBY-7 score (0-4 normal; 5-9 mild; 10-14 moderate; 15-21 severe): 2 Source: Developed by Drs. Matthew Gracia, Daniella Arana, Arpit Watson and colleagues, with an educational juan c from [employer]. SCOOBY-7 Assessment Billing CSOOBY-7 Assessment Tool: SCOOBY-7 Assessment 02432 Review of Systems Const Details: - Psychiatric: Reports depression, seasonal variation in mood and energy, increased sleep, irritability. - Allergy/Immunology: Reports multiple severe allergies, including a recent reaction to deodorant. - Endocrine: Reports increased thirst and urination. - Respiratory: Denies current regular use of inhalers due to asthma. - Neurological: Denies migraines worsening. Physical exam (Primary Care) Vital Signs: Last Vital Signs BP 118/64 09/16/24 09:07 BMI result Body Mass Index 26.6 Tobacco/Smoking Status: Tobacco use Status Tobacco use date assessed 09/16/24 09/16/24 09:06 Patient Tobacco Use Status Former Tobacco user 09/16/24 09:06 Tobacco use type Cigarette 09/16/24 09:06 e-Cigarette/Vaping Use Never Used 09/16/24 09:06 PHQ-9: PHQ-9 Score PHQ-9: Total score 4 09/16/24 09:27 Depression Screening Interpretation: Positive Depression Screening Follow-up: Existing condition and Follow-up Visit Requested Thrive Assessment: Date of Thrive Assessment Date Thrive assessed 09/16/24 09/16/24 09:06 Currently or been in a relationship where the following occur: I choose not to answer Const Other: General: Cooperative, healthy appearing, comfortable, no acute distress and well developed Orientation: Patient oriented x3 Limitations: No limitations Head: Normal to inspection Ears: Hearing grossly normal bilaterally Nose: Normal external nose present Face and sinus: Normal facial exam Eyes: Appearance normal, both eyes and all related structures Neck: Normal visual inspection and Yes full ROM Respiratory: Normal respiratory effort and able to speak in complete sentences. Clear to auscultation bilaterally Cardiovascular: Regular rate and rhythm. Normal S1 and S2 GI: Normal to inspection. Soft to palpation and nontender Skin: No rashes or lesions noted Neuro: Patient oriented x3 Extremities: Normal to inspection Office Procedures Flu Questionnaire Does the patient have a severe egg allergy?: No Immunizations Fluarix Triv [id number] (PF) 45 mcg (15 mcg x 3)/0.5 mL IM syringe Performing Provider: Carri Hogan MD [facility] Documented (not given) by: SARAH Horan on 09/16/24 09:12 Reason Not Given: Patient Refused Coding Level of Care Code Est Pt Prev Care 40-64y(29933) Diagnoses Physical exam Z00.00 Additional Codes SCOOBY-7 Assessment Billing - SCOOBY-7 Assessment Tool: SCOOBY-7 Assessment 11485 ([id number]) PHQ-9 - 45705 - PHQ-9 Billing: Yes ([id number]) Time Spent (min) 31 Assessment & Plan Assessment & Plan (1) Physical exam: Code(s): Z00.00 - Encounter for general adult medical examination without abnormal findings Category: Medical Plan - Refill lorazepam for anxiety as per patient's request, with discussion reg arding addiction risk. - Tap Grinder patient on seasonal affective disorder management; recommend continuation of exercise regimen. - Monitor and evaluate blood glucose to manage prediabetes risk. Repeat fasting glucose test recommended. - Address potential early menopause symptoms; consider relevant endocrine evaluation. - Provide allergen avoidance strategies and manage asthma symptoms with continue d as-needed use of albuterol inhaler. - Continue current regimen for migraine Emgality) and gastrointestinal reflux omeprazole). - Follow up on cardiovascular risk factors, in view of family cardiac history and slightly elevated blood glucose. - Advise obtaining flu vaccination unless contraindicated. Patient was informed and verbally consented to the use of an ambient scribe for clinic note documentation during this visit. Orders: Orders Influenza [id number] Immunization Today Z23 - Encounter for immunization Comprehensive [place]. Panel Fast Today Z00.00 - Encounter for general adult medical examination without abnormal findings MM tomosynthesis screening BI Today Z12.31 - Encounter for screening mammogram for malignant neoplasm of breast Medications: Refilled lorazepam 0.5 mg PO DAILY PRN 20 tabs 0RF anxiety 30 days Patient Instructions: - Administer medications as prescribed, including lorazepam minimally as needed. - Continue regular exercise to help manage anxiety and mood. - Monitor blood glucose levels as per recommendations; fasting required before next test. - Schedule a mammogram if not performed within the past year. - Avoid known allergens and consider using alternative products for deodorant. - Obtain the flu vaccine if desired and no contraindications exist. - Return if there are any concerns or new symptoms regarding mood or asthma.
[2024-09-16 09:07] VITALS: BP 118/64; BMI 26.6
== END 2024-09-16 09:34 | disposition home or self-care (01) ==
PROVIDERS: PCP Internal Medicine; Visit Provider Internal Medicine
DX: Z00.00 Encounter for general adult medical examination without abnormal findings (principal); Z23 Encounter for immunization

== ENCOUNTER 2024-09-16 08:59 | Outpatient (REF) | payer OTHER, SELFPAY ==
[2024-09-16 10:57] LABS: Alanine Aminotransferase 15 U/L (0-31); Albumin Level 3.9 g/dL (3.5-5.0); Alkaline Phosphatase 31 U/L (39-117); Anion Gap 7 (12-20); Aspartate Amino Transferase 20 U/L (5-31); Bilirubin Total 0.3 mg/dL (0.0-1.0); Blood Urea Nitrogen 11 mg/dL (9-16); Calcium 8.4 mg/dL (8.4-10.2); Carbon Dioxide 27 mmol/L (22-29); Chloride 109 mmol/L (96-108); Estimated Glomerular Filt Rate > 60; Glucose Fasting 90 mg/dL (60-99); Potassium 4.4 mmol/L (3.3-5.1); Sodium 139 mmol/L (135-145); Total Protein 6.6 g/dL (6.5-8.0)
== END 2024-09-16 09:00 | disposition home or self-care (01) ==
LOC: HO.LAB 08:59
PROVIDERS: PCP Internal Medicine; Visit Provider Internal Medicine
DX: Z00.00 Encounter for general adult medical examination without abnormal findings (principal); F41.8 Other specified anxiety disorders; F32.A Depression, unspecified; Z28.21 Immunization not carried out because of patient refusal
CPT/HCPCS: 36415; 80053; 90471; 96127

== ENCOUNTER 2024-11-01 13:29 | Outpatient (AMB) | payer OTHER, SELFPAY ==
--- NOTE | 2024-11-01 13:30 | MHC.OFFVIS ---
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 Accompanied by: Self / Same As Patient Allergies amoxicillin [Amoxicillin] Allergy (Severe, Verified 11/01/24 13:36) Rash/Hives coconut Allergy (Severe, Verified 11/01/24 13:36) Rash/Hives hazelnut Allergy (Severe, Verified 11/01/24 13:36) Rash/Hives Penicillins Allergy (Severe, Verified 11/01/24 13:36) Rash/Hives Sulfa (Sulfonamide Antibiotics) Allergy (Severe, Verified 11/01/24 13:36) Rash/Hives Latex, Natural Rubber Adverse Reaction (Severe, Verified 11/01/24 13:36) Blister From Lexapro Allergy (Severe, Uncoded 09/16/24 09:17) Rash/Hives From Prozac Allergy (Severe, Uncoded 09/16/24 09:17) Rash/Hives From Zoloft Allergy (Severe, Uncoded 09/16/24 09:17) Rash/Hives Medication List - Last Reconciled 11/01/24 by ASYA Delacruz albuterol sulfate 90 mcg/actuation inhalation dupilumab (Dupixent) 300 mg (2 mL) subcut Q2W galcanezumab-gnlm (Emgality Pen) 120 mg subcut ONCE 30 days ipratropium-albuterol 0.5 mg-3 mg(2.5 mg base)/3 mL 3 mL inhalation BID PRN 30 days levonorgestrel (Mirena) intrauterine lorazepam 0.5 mg PO DAILY PRN 30 days omeprazole 40 mg PO DAILY 90 days Spiriva Respimat 2.5 mcg/actuation (tiotropium bromide) 2 puffs PO DAILY NS Symbicort 160-4.5 mcg/actuation (budesonide-formoterol) 2 puffs PO BID NS tirzepatide (weight loss) (Zepbound) 2.5 mg subcut QWEEK valacyclovir (Valtrex) 500 mg PO BID HPI Comments Details: 44-yr-old female presents for f/u visit for migraine. Pt denies any significant interval medical changes. In the fall, she had multiple more severe holocranial pressure type migraine a/w pain radiating up from her neck, where she even had to take 2 days off of work. She tends to need lorazepam for anxiety on flights. She thinks these were triggered by travel- flight to [place] for a 10k run and 1/2 marathon during a heat wave. and the second was a trip to [place]. These attacks were not responsive to her usual tx's. These migraines lasted longer and were less responsive to her usual NSAIDs and sumatriptan. After this, her roll tester did increase the amt of her cosmetic Botox which he feels has had some benefit for her migraine as well.. Since, she has occasional mild headaches often a/w not having drank quite enough fluids.. She has had 3 bad migraines since July. She has been taking Emgality every other month, and does not notice this wearing off in between uses. Her more recent migraines are more responsive to OTC NSAIDs. Headache questionnaire: Age/time of onset: Adolescence Preceding causes: Initially none. Worsened after having COVID-19 x3 in 2021. Prodrome symptoms: None Aura: May have numbness and tingling in hands and feet during attack. Headache characteristics? Moderate to severe, forehead, left or right buddhism/eye pressure and/or throbbing. S/P COVID-19 infections, headache can also start in back of the head. A/w blurry vision and not right in space dizziness. Photophobia, phonophobia, osmophobia, nausea, vomiting if severe, brain fog, fatigue, watery red eyes, at times numbness and tingling in hands and feet. Without focal weakness. Postdrome: fatigue [facility] Medical History IUD surveillance BRCA negative Asthma-COPD overlap syndrome MORALES (obstructive sleep apnea) Seasonal allergies Asthma Asthma Surgical History History of loop electrical excision procedure (LEEP) H/O cardiac catheterization History of section Family History Mother Skin cancer Hypertension Father H/O heart artery stent Skin cancer Paternal Aunt Breast cancer Brother Skin cancer Family/Other Breast cancer Social History Housing: Apartment Alcohol intake: current Alcohol intake frequency: holidays/special occasions only Alcohol type: beer and wine Patient Tobacco Use Status: Former Tobacco user Tobacco use type: Cigarette Years Smoked: 11 years e-Cigarette/Vaping Use: Never Used Second Hand Smoke Exposure: No Substance Use Type: Marijuana service: No Current occupational status: employed 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 Current occupational exposures/hazards: No Cognitive needs: No Hearing needs: No Vision needs: No Female Reproductive History Menstrual Age of Menarche: 13 Physical Exam Vital Signs: Last Vital Signs Pulse 73 11/01/24 13:38 BP 124/60 11/01/24 13:38 Pulse Ox 98 11/01/24 13:38 Oxygen Delivery Method Room Air 11/01/24 13:38 BMI result Body Mass Index 26.3 Const General: cooperative and no acute distress Orientation/consciousness: patient oriented x3 HEENT Head: Yes normocephalic Resp Effort & Inspection: normal respiratory effort and able to speak in complete sentences Neuro General: patient oriented x3, gait normal and CN's II-XI intact bilaterally Cognition (Neuro): normal cognition Motor exam (neuro): 5/5 motor strength present throughout Psych Appearance: grossly normal Mental Status: mental status grossly normal Speech and movement: Normal speech and movement present Affect: normal affect Attitude: cooperative Assessment & Plan Assessment & Plan (1) Migraine with aura: Code(s): G43.109 - Migraine with aura, not intractable, without status migrainosus Category: Medical Qualifiers: Status migrainosus presence: without status migrainosus Intractability: not intractable Qualified Code(s): G43.109 - Migraine with aura, not intractable, without status migrainosus (2) Headache due to high altitude: Comment: Air travel induced more severe pressure migraine attack Code(s): R51.9 - Headache, unspecified; T70.29XA - Other effects of high altitude, initial encounter Category: Medical Plan For dizziness: Improved Scopolamine patch p.r.n. Re-consider PT if dizziness worsens. ? For overall headache management: Continue optimizing good self-care. For headache triggers: Track headaches Pt may benefit from work place accommodations- however her office is moving so will hold on this. ? For acute headache treatment: Sumatriptan to 50-100mg at onset of migraine, may repeat in 2 hrs. May adjunct w/ NSAID. Previous acute migraine medication trials: Excedrin- no longer effective Acute migraine medication contraindications: None at this time For migraine induced by air travel: Trial Acetazolamide 125 mg- 125 mg by mouth every 6 hours, may start 24 hours before air travel in continue for 48 hours. Reviewed common side effects, including increased urinary frequency, pins and needle sensation, dizziness. ? For headache prevention medication: Riboflavin 400mg daily in am. Magnesium 400mg daily at bedtime Emgality 120mg sc- as patient continues to have greater than 50% reduction in monthly migraine days, she may continue to take this every other month. Previous migraine prevention medication trials: Topiramate caused mood changes and irritability. Candasertan 16mg- lightheadedness/unwell feeling. Migraine prevention medication contraindications: BBs d/t asthma dx. Amitriptyline- d/t h/o bipolar d/o. and pt not on any mood stabilization. ? f/u in 6 months or sooner prn. Medications: New acetazolamide 125 mg PO Q6H 30 tabs 1RF 30 days Refilled galcanezumab-gnlm (Emgality Pen) 120 mg subcut ONCE 1 mL 6RF 30 days sumatriptan succinate 50 - 100 mg orally at onset of headache, may repeat in 2 hrs PRN; max 2 tabs per day or 4 tabs/week (may take with Ibuprofen) 24 tabs 2RF migraine headache 60 days Coding Level of Care Code Est Pt Level 4 (08095) Diagnoses Migraine with aura and without status migrainosus, not intractable G43.109 Status migrainosus presence: without status migrainosus Intractability: not intractable Headache due to high altitude R51.9; T70.29XA
== END 2024-11-01 14:18 | disposition home or self-care (01) ==
PROVIDERS: PCP Internal Medicine; Visit Provider Nurse Practitioner Family
DX: G43.109 Migraine with aura, not intractable, without status migrainosus (principal); R51.9 Headache, unspecified; T70.29XA Other effects of high altitude, initial encounter
CPT/HCPCS: 99214

== ENCOUNTER → 2024-11-01 13:29 | Outpatient (BNVA) | payer OTHER, SELFPAY | PROVIDERS: PCP Internal Medicine; Visit Provider Nurse Practitioner Family ==

== ENCOUNTER 2025-02-04 08:56 | Outpatient (REF) | payer OTHER, SELFPAY ==
--- OUTSIDE RECORDS SUMMARY | 2025-02-04 10:34 | XMS_ITS | Clinical Summary ---
Author Organization 175 [facility] Address [address] [place] [address] Phone Care Team Providers Care Police Officer Name Role Phone Carri Hogan MD Primary Care Provider [phone] Allergies Active Allergy Reactions Criticality Noted Date [...] Date Obstructive sleep apnea 05/11/2021 Overview (07/03/2024): [facility] Home Sleep Apnea Test: Date 04/24/2021; Wt [...] procedure Chronic hepatitis C without hepatic coma ([facility] V24, [facility] V28) 10/28/2015 Overview (07/03/2024): NOT DETECTED on 08/20/19. Gestational diabetes 05/12/2014 Anxiety and depression 02/07/2014 Asthma, mild intermittent 02/07/2014 Encounters Date Type Department Care Team Description 12/12/2024 8:45 AM EDT Office Visit Bariatric Surgery - [address] [place] [address] Kayy Engle PA Overweight (BMI [...] PROCEDURE: HISTORICAL DELIVERY OTHER SURGICAL HISTORY PROCEDURE: [place] ANES C-CATHJ W/C ANGIOGRAPHY & VENTRICULOGRAPHY FLEXIBLE [...] AM EDT Office Visit Bariatric Surgery - [place] 175 [facility] [address] [place] [phone] Kayy Engle PA [address] [address] Health Maintenance Due Date Last Done Comments [...] * Cervical Cancer Screening: HPV (09/10/2019) Pathologist [facility] Cervical Cancer Screening: HPV negative, abstracted Historical Provider HEALTH MAINTENANCE Final Result * Hepatitis C Screening (01/17/2019) Pathologist [facility] Hepatitis C Screening abstracted Historical Provider HEALTH MAINTENANCE Final Result * (ABNORMAL) Lipid panel (09/01/2017) [facility] LDL/HDL Ratio 4 0 - 4 Triglycerides 108 0 - 150 mg/dL Cholesterol 209(A) 0 - 200 mg/dL HDL 52 >=40 mg/dL LDL Cholesterol 136(A) 0 - 100 mg/dL Blood Venous blood specimen / Unknown us Historical Provider LAB BLOOD ORDERABLES Miguelina l Result from Last 3 Months or Most Recently Relevant to Health Maintenance Insurance [facility] [address] [place] [address] Care Teams Police Officer Relationship Specialty Start Date End Date Carri oHgan MD 2 [facility] , [address] [facility] Physician Associ D/B/A: [facility] [place] PCP - General 09/20/22
[2025-02-04 16:42] LABS: Bacterial Vaginosis PCR NEGATIVE (Negative); Candida Group PCR NOT DETECTED (Not Detect); Candida glab krusei PCR NOT DETECTED (Not Detect); Trichomonas vaginalis PCR NOT DETECTED (Not Detect)
[2025-02-04 17:11] LABS: CT PCR NOT DETECTED (Not Detect.); NG PCR NOT DETECTED (Not Detect.)
== END 2025-02-04 08:57 | disposition home or self-care (01) ==
LOC: HO.LAB 08:56
PROVIDERS: PCP Internal Medicine; Visit Provider Advanced Practice Midwife
DX: Z20.2 Contact with and (suspected) exposure to infections with a predominantly sexual mode of transmission (principal)
CPT/HCPCS: 81515; 87491; 87591

== ENCOUNTER 2025-02-04 08:56 | Outpatient (AMB) | payer OTHER, SELFPAY ==
--- NOTE | 2025-02-04 09:01 | MHC.OFFVIS ---
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 Life Enrichment Assistant: Life Enrichment Assistant Present (Camelia) Allergies amoxicillin [Amoxicillin] Allergy (Severe, Verified 02/04/25 09:04) Rash/Hives coconut Allergy (Severe, Verified 02/04/25 09:04) Rash/Hives hazelnut Allergy (Severe, Verified 02/04/25 09:04) Rash/Hives Penicillins Allergy (Severe, Verified 02/04/25 09:04) Rash/Hives Sulfa (Sulfonamide Antibiotics) Allergy (Severe, Verified 02/04/25 09:04) Rash/Hives Latex, Natural Rubber Adverse Reaction (Severe, Verified 02/04/25 09:04) Blister From Lexapro Allergy (Severe, Uncoded 09/16/24 09:17) Rash/Hives From Prozac Allergy (Severe, Uncoded 09/16/24 09:17) Rash/Hives From Zoloft Allergy (Severe, Uncoded 09/16/24 09:17) Rash/Hives Is last menstrual period known: Yes Last menstrual period: 02/02/25 HPI Comments Details: She is a premenopausal woman presenting for annual examination. Doing well with talkback host concerns: wants STI screening, but not bloodwork. Admits to increased discharge, took an OTC med which helped. Refills for Valtrex, many out breaks this year. Shingles this past year. 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 Mirena for AUB 2018, had passed out x2 when inserted. Has not occasional spotting dark blood every few months. Hx. PTSD. Currently is not sexually active. She denies vaginal itching or irritation. She tries to eat healthy and stays active with exercise. Denies family history of ovarian or colon cancer. Family history of breast cancer. Patient BRCA negative. Last pap smear 2022, negative. Mammogram: not up to dates. [facility] Medical History Left breast lump IUD surveillance BRCA negative Asthma-COPD overlap syndrome MORALES (obstructive sleep apnea) Seasonal allergies Asthma Asthma Surgical History History of loop electrical excision procedure (LEEP) H/O cardiac catheterization History of section Family History Mother Skin cancer Hypertension Father H/O heart artery stent Skin cancer Paternal Aunt Breast cancer Brother Skin cancer Family/Other Breast cancer Social History Housing: Apartment Alcohol intake: current Alcohol intake frequency: holidays/special occasions only Alcohol type: beer and wine Patient Tobacco Use Status: Former Tobacco user Tobacco use type: Cigarette Years Smoked: 11 years e-Cigarette/Vaping Use: Never Used Second Hand Smoke Exposure: No Substance Use Type: Marijuana service: No Current occupational status: employed 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 Current occupational exposures/hazards: No Cognitive needs: No Hearing needs: No Vision needs: No Female Reproductive History Menstrual Age of Menarche: 13 Date of last menstrual period: 02/02/25 control method: progestin IUCD (Mirena Fall 2018 [facility]) Total pregnancies: 3 Full term: 1 Number of Living Children: 1 Ab induced: 1 Ab spontaneous: 1 Date of last pap smear: 10/26/22 (neg pap and hpv) History of abnormal pap smear: Yes (hx hakeem 2007) Review of Systems Const All systems reviewed & are unremarkable except as noted in HPI and below Reports as per HPI Eyes Reports no additional complaints ENT Reports no additional complaints Card Reports no additional complaints Resp Reports no additional complaints GI Reports as per HPI and Reports no additional complaints Reports as per HPI Musc Reports no additional complaints Skin/Breast Reports as per HPI Neuro Reports no additional complaints Psych Reports no additional complaints Endo Reports no additional complaints Alexis/Lymph Reports no additional complaints Aller/Immun Reports no additional complaints Physical Exam Vital Signs: BMI result Body Mass Index 26.6 Const General: cooperative, healthy appearing, no acute distress, well developed and alert Orientation/consciousness: patient oriented x3 HEENT Head: Yes normal to inspection Eyes General: appearance normal, both eyes and all related structures Neck Neck: Yes normal visual inspection Thyroid: Thyroid normal Chest Chest palpation & inspection: normal inspection of the chest and other (no puckering, dimpling, peau de orange, retraction, discharge, masses) Breast/axilla inspection: normal inspection of the breasts Breast/axilla palpation: normal palpation of the breasts Resp Effort & Inspection: normal respiratory effort GI Inspection: Yes normal to inspection and Yes scar Palpation (GI): Soft to palpation Rectal Exam - Female: deferred General: Yes bladder normal to palpation External Female Exam: normal external appearance and normal appearance of the urethra Speculum Exam - Vagina: normal appearance of the vagina, normal palpation, normal vaginal discharge and vaginal bleeding (Dark brown blood) Speculum Exam - Cervix: normal appearance of the cervix and normal palpation Bimanual exam- vagina & uterus: normal bimanual exam, normal palpation, uterine size normal, bladder normal to palpation, normal palpation and non-tender Bimanual Exam- Adnexa, other: no masses OB/external & speculum: vaginal bleeding (Dark brown blood) Skin General skin exam: no rashes or lesions noted Rashes: no rashes Neuro General: patient oriented x3 Cognition (Neuro): normal cognition Extrem General: Yes normal to inspection Psych Attitude: cooperative Thought process: Normal thought process present Assessment & Plan Assessment & Plan (1) Encounter for well woman exam with routine gynecological exam: Code(s): Z01.419 - Encounter for gynecological examination (general) (routine) without abnormal findings Category: Medical (2) Left breast lump: Comment: 09:00 Code(s): N63.20 - Unspecified lump in the left breast, unspecified quadrant Category: Medical Qualifiers: Breast mass location: unspecified quadrant Qualified Code(s): N63.20 - Unspecified lump in the left breast, unspecified quadrant Plan: Discuss workup for breast lump to include diagnostic mammogram and left breast ultrasound, follow up person for ultrasound and mammogram results. If requiring a biopsy appointment will be made with surgeon within the [facility]. The patient expressed understanding and agreement with the plan of care. All of her questions and concerns were addressed to the best of my ability. Plan Discussed: Current recommendations for pap smears per ASCCP guidelines. Breast awareness and periodic breast exams. Mammogram yearly. Maintain a healthy lifestyle including a well balanced diet and routine exercise. Stress reduction methods. Reluctant to have IUD updated due to the pain and her experience. If bleeding increases is monthly and increasing in volume, strongly encouraged to scheduled before becomes abnormal. Consider having hysteroscopy under anesthesia for IUD removal and reinsertion. BV panel GC chlamydia obtained, await results for plan of care. Options for Valtrex use including daily preventative use, opts for that versus episodic, Rx sent in. Use condoms for STI and prevention. Patient verbalizes understanding and agrees to the plan of care. She was given opportunity to ask questions and all questions were answered to the best of my ability. RTO in one year for annual talkback host examination. This note is constructed using voice recognition software. While every effort has been made to ensure accuracy, ship yard electrical person errors may have been included. Orders: Orders MM tomosynthesis diagnostic BI Today N63.20 - Unspecified lump in the left breast, unspecified quadrant, Z12.31 - Encounter for screening mammogram for malignant neoplasm of breast Bacterial Vaginosis Panel Today Z20.2 - Contact with and (suspected) exposure to infections with a predominantly sexual mode of transmission CT NG by PCR Today Z20.2 - Contact with and (suspected) exposure to infections with a predominantly sexual mode of transmission US breast LT limited Today N63.20 - Unspecified lump in the left breast, unspecified quadrant Medications: Changed From valacyclovir (Valtrex) take with onset on of symptoms, take for three days, may repeat dosing per episode prn 500 mg PO BID 90 tabs 2RF To valacyclovir (Valtrex) take daily 500 mg PO DAILY 90 tabs 4RF Coding Level of Care Code Est Pt Prev Care 40-64y(48416) Diagnoses Encounter for well woman exam with routine gynecological exam Z01.419 Mass of left breast, unspecified quadrant N63.20 Breast mass location: unspecified quadrant
[2025-02-04 09:02] VITALS: BP 130/70; BMI 26.6
--- OUTSIDE RECORDS SUMMARY | 2025-02-04 09:20 | XMS_ITS | Clinical Summary ---
Author Organization 175 [facility] Address [address] [place] [address] Phone Care Team Providers Care Prop Sawyer Name Role Phone Carri Hogan MD Primary Care Provider Allergies Active Allergy Reactions Criticality Noted Date Comments Amoxicillin 01/20/2015 Coconut Flavor 02/07/2014 Positive allergy blood work, no history of reaction Fluoxetine Hives,Wheezing 05/12/2014 Hazelnut 11/28/2022 Latex Hives 02/26/2014 Other 02/26/2014 [place]elnut positive blood testing, no history of reactions with ingestion Other (No Interaction Warnings) Penicillins 02/07/2014 Sertraline Hives 05/12/2014 Sob Sulfa (Sulfonamide Antibiotics) 02/07/2014 Medications galcanezumab-gn lm (Emgality Pen) 120 mg/mL injection pen Inject into the skin. Active dupilumab (Dupixent Syringe) 100 mg/0.67 mL syringe Inject into the skin. Active omeprazole (PriLOSEC) [address] capsule Take 1 capsule (40 mg total) by mouth 1 (one) time each day. 2 Active acyclovir (ZOVIRAX) 800 mg tablet Take 800 mg by mouth 5 times daily. Active buPROPion XL (WELLBUTRIN XL) 150 mg 24 hr tablet Take 1 Tablet by mouth every morning for 30 days. 3 Active tiotropium bromide (SPIRIVA WITH HANDIHALER INHL) Inhale into the lungs. Active LORazepam (ATIVAN) 0.5 mg tablet Take 1 tablet by mouth every 8 hours as needed for Anxiety. Take 1 Tab by mouth every 8 hours as needed for Anxiety. 1 Active albuterol 2.5 mg /3 mL (0.083 %) nebulizer solution Take 1 Vial by nebulization every 6 hours as needed for Wheezing. 1 Active albuterol HFA (PROAIR HFA ; PROVENTIL HFA ; VENTOLIN HFA) 90 mcg/actuation inhaler Inhale 2 Puffs into the lungs every 4 hours as needed for Cough or Wheezing. 1 Active EPINEPHrine (EpiPen 2-Nelson) 0.3 mg/0.3 mL injection Inject 1 Device as directed as needed (anaphylaxis). Use as directed 8 Active fluticasone propionate (FLONASE) 50 mcg/actuation nasal spray 2 Sprays by Nasal route daily. Intranasal: Two sprays in each nostril once daily; once symptoms controlled reduce to 1 spray in each nostril once daily . Maintenance therapy is 1 spray daily in each nostril. 1 Active budesonide/form oterol fumarate (SYMBICORT INHL) Inhale into the lungs. Active tirzepatide, weight loss, (Zepbound) 7.5 mg/0.5 mL injection Inject 0.5 mL (7.5 mg total) under the skin every 7 (seven) days. 2 mL 2 5 Active Active Problems Problem Noted Date Diagnosed Date Obstructive sleep apnea 05/11/2021 Overview (07/03/2024): [facility] Home Sleep Apnea Test: Date 04/24/2021; Wt 210#; BMI 34; SHILA (AHI) 8, AI 1; HI 8; Unclassified apneas 0; Obstructive apneas 4; Central apneas 0; Mixed apneas 0; hypopneas 53; average oxygen saturation 90% (lowest 73% with saturations <88% for 5% or more of study) - Obstructive Sleep Apnea - mild; mostly hypopneas; with sleep related hypoventilation by 2020 home sleep apnea test. Nocturnal hypoxemia 05/11/2021 Panic attack 01/07/2021 Dizziness 08/20/2019 Overweight (BMI 25.0-29.9) 06/14/2019 Chronic diarrhea 12/10/2018 Hematochezia 12/10/2018 Perennial allergic rhinitis 12/10/2018 Angio-edema 12/10/2018 Red eyes 09/04/2018 Insulin controlled gestation al diabetes mellitus (GDM) during , antepartum 04/03/2018 Environmental and seasonal allergies 09/19/2017 Pure hypercholesterolemia 02/12/2016 Chest pain 02/12/2016 Overview (07/03/2024): Cardiac cath negative, but had infection from procedure Chronic hepatitis C without hepatic coma ([facility] V24, [facility] V28) 10/28/2015 Overview (07/03/2024): NOT DETECTED on 08/20/19. Gestational diabetes 05/12/2014 Anxiety and depression 02/07/2014 Asthma, mild intermittent 02/07/2014 Encounters Date Type Department Care Team Description 12/12/2024 8:45 AM EDT Office Visit Bariatric Surgery - [address] [place] [address] Kayy Engle PA Overweight (BMI 25.0-29.9) (Primary Dx) from Last 3 Months Immunizations Name Administration Dates Next Due Influenza Quadravalent, MDCK , 0.5ml, preservative free (Flucelvax) 6mo and older 06/19/2018 Influenza Quadravalent, MDCK , 0.5ml, with preservative (Flucelvax) 6mo and older 07/13/2017 Influenza, Unspecified 07/29/2021 Moderna SARS-CoV-2 COVID-19, mRNA, LNP-S, preservative free 07/29/2021 Pneumococcal polysaccharide 23 valent (Pneumovax 23) 2yo and older 07/29/2021,06/19/2018 Tdap Tetanus diptheria acell ular pertussis (Boostrix; Adacel) 7yo and older 06/02/2011 Surgical History Surgery Date Site/Laterality Comments SECTION 2010 PROCEDURE: HISTORICAL DELIVERY OTHER SURGICAL HISTORY PROCEDURE: [place] ANES C-CATHJ W/C ANGIOGRAPHY & VENTRICULOGRAPHY FLEXIBLE SIGMOIDOSCOPY 08/01/2018 PROCEDURE: HISTORICAL FLEXIBLE SIGMOIDOSCOPY; COMMENT: normal exam Medical History Medical History Date Comments Obesity, Class II, BMI 35-39 .9, with comorbidity 09/19/2017 DX:Obesity, Class II, BMI 35 -39.9, with comorbidity Environmental and seasonal allergies 09/19/2017 DX:Environmental and seasonal allergies Chest pain 02/12/2016 DX:Chest pain; C OMMENT: history of positive stress test, underwent cath Pure hypercholesterolemia 02/12/2016 DX:Pur e hypercholesterolemia Chronic hepatitis C without hepatic coma (CMS/HCC V24, CMS/HCC V28) 10/28/2015 DX:Chronic hepatitis C without hepatic coma (HCC) Gestational diabetes 05/12/2014 DX:Gestatio nal diabetes Asthma, mild intermittent 02/07/2014 DX:Ast hma, mild intermittent Anxiety and depression 02/07/2014 DX:Anxiet y and depression Melanoma in situ of lower ex tremity (CMS/HCC V24, CMS/HCC V28) DX:Melanoma in situ of lowe r extremity (HCC); COMMENT: at age 21 Class 1 obesity with body ma ss index (BMI) of 31.0 to 31.9 in adult 01/28/2019 DX:Class 1 obesity with body mass index (BMI) of 31.0 to 31.9 in adult Family History Medical History Relation Name Comments Other: breast cancer Aunt 1 materna l aunt Other: breast cancer Aunt 2 paterna l aunt; second primary br ca at 57 Other: milk allergy Brother Coronary artery disease Father sten t Other: diverticulitis Father Other: melanoma Father Other: prostate cancer Maternal Grandfather Hypertension Mother hyperlipidemia Other: BCC Mother Other: breast cancer Other 1 materna l great aunt Other: breast cancer Other 2 materna l first cousin once removed; bilateral Other: ovarian cancer Other 3 matern al great grandmother 1 Other: breast cancer Other 4 materna l great grandmother 2 Other: skin cancer Other 5 maternal great uncle Other: bilateral breast cancer Other 6 paternal great aunt Other: breast cancer Other 7 paterna l great grandmother Other: prostate cancer Paternal Grandfather Other: liver cancer Paternal Grandmother Other: ovarian cancer Paternal Grandmother Other: stomach cancer Paternal Grandmother Relation Name Status Comments Aunt 1 Alive Aunt 2 Brother Father Alive Maternal Grandfather Mother Alive Other 1 Other 2 Other 3 Other 4 Other 5 Other 6 Other 7 Paternal Grandfather Paternal Grandmother Social History Tobacco Use Types Packs/Day Years Used Date Smoking Tobacco: Former Cigarettes 0.5 10.5 0 04/03/2000 - 10/14/2010 Smokeless Tobacco: Never Tobacco Cessation:Counseling Given: Not Answered Alcohol Use Standard Drinks/Week Comments Yes 0 (1 standard drink = 0.6 oz pur e alcohol) Comments Unknown Sex and Gender Information Value Date Recorded Sex Assigned at Not on file Legal Sex Female 7:39 PM EST Gender Identity Not on file Sexual Orientation Not on file Obstetrics History Last Filed Vital Signs Vital Sign Reading Time Taken Comments Blood Pressure 142/92 12/12/2024 8:53 AM EDT Pulse 83 12/12/2024 8:53 AM EDT Temperature - - Respiratory Rate - - Oxygen Saturation - - Inhaled Oxygen Concentration - - Weight 72.7 kg (160 lb 3.2 oz) 12/12/2024 8:53 A M EDT Height 165.1 cm (5' 5 ) 12/12/2024 8:53 AM EDT Body Mass Index 26.66 12/12/2024 8:53 AM EDT Plan of Treatment Upcoming Encounters Date Type Department Care Team (Late st Contact Info) Description 03/06/2025 8:15 AM EDT Office Visit Bariatric Surgery - [place] 175 [facility] [address] [place] [phone] Kayy Engle PA [address] [address] Health Maintenance Due Date Last Done Comments Breast Cancer Screening 1981 Hepatitis B Vaccines (2 of 3 - 3-dose series) 1981 1981 Pneumococcal Vaccine: Pediatrics (0 to 5 Years) and At-Risk Patients (6 to 64 Years) (2 of 2 - PCV) 07/29/2022 07/29/2021, 06/19/2018 Cholesterol Screening (Lipid Panel) 09/03/2022 09/01/2017 Depression Screening 09/03/2022 HIV Screening 09/03/2022 Social Influencers of Health Screening 09/03/2022 COVID-19 Vaccine ( season) 2024 07/29/2021, 11/20/2020, 10/23/2020 Cervical Cancer Screening: HPV 09/10/2024 09/10/2019 Influenza Vaccine (Season Ended) 2025 07/29/2021, 06/19/2018, 07/13/2017, Additional history exists DTaP,Tdap,and Td Vaccines (3 - Td or Tdap) 04/04/2034 04/04/2024, 06/02/2011 Hepatitis C Screening Completed 01/17/2019 HIB Vaccines Aged Out No longer eligi ble based on patient's age to complete this topic HPV Vaccines Aged Out No longer eligi ble based on patient's age to complete this topic Hepatitis A Vaccines Aged Out No long er eligible based on patient's age to complete this topic IPV Vaccines Aged Out No longer eligi ble based on patient's age to complete this topic MMR Vaccines Aged Out No longer eligi ble based on patient's age to complete this topic Meningococcal ACWY Vaccine Aged Out N o longer eligible based on patient's age to complete this topic Meningococcal B Vaccine Aged Out No l onger eligible based on patient's age to complete this topic RSV Immunization Patients Under 20 months Aged Out No longer eligible based on patient's age to complete this topic Varicella Vaccines Aged Out No longer eligible based on patient's age to complete this topic Procedures Procedure Name Priority Date/Time Associated Diagnosis Comments HPV Routine 09/10/2019 HEPATITIS C SCREENING Routine 01/17/2019 LIPID PANEL Routine 09/01/2017 from Last 3 Months or Most Recently Relevant to Health Maintenance Results * Cervical Cancer Screening: HPV (09/10/2019) Pathologist [facility] Cervical Cancer Screening: HPV negative, abstracted Historical Provider HEALTH MAINTENANCE Final Result * Hepatitis C Screening (01/17/2019) Pathologist [facility] Hepatitis C Screening abstracted Historical Provider HEALTH MAINTENANCE Final Result * (ABNORMAL) Lipid panel (09/01/2017) [facility] LDL/HDL Ratio 4 0 - 4 Triglycerides 108 0 - 150 mg/dL Cholesterol 209(A) 0 - 200 mg/dL HDL 52 >=40 mg/dL LDL Cholesterol 136(A) 0 - 100 mg/dL Blood Venous blood specimen / Unknown us Historical Provider LAB BLOOD ORDERABLES Miguelina l Result from Last 3 Months or Most Recently Relevant to Health Maintenance Insurance [facility] [address] [place] [address] Care Teams Prop Sawyer Relationship Specialty Start Date End Date Carri Hogan MD 2 [facility] , [address] [facility] Physician Associ D/B/A: [facility] [place] PCP - General 09/20/22
== END 2025-02-04 10:51 | disposition home or self-care (01) ==
LOC: HO.HWS 08:56
PROVIDERS: PCP Internal Medicine; Visit Provider Advanced Practice Midwife
DX: Z01.419 Encounter for gynecological examination (general) (routine) without abnormal findings (principal); N63.20 Unspecified lump in the left breast, unspecified quadrant
CPT/HCPCS: 99396; 99459

== ENCOUNTER 2025-02-04 09:48 | Outpatient (REF) | payer OTHER, SELFPAY | END 2025-02-04 09:49 | disposition home or self-care (01) | LOC: HO.LNP 09:48 | PROVIDERS: Visit Provider Advanced Practice Midwife | DX: Z13.89 Encounter for screening for other disorder (principal) ==

== ENCOUNTER 2025-02-10 13:10 | Outpatient (REF) | payer OTHER, SELFPAY ==
--- NOTE | ~2025-02-10 | MM_ITS ---
EXAMINATION: MM DIAGNOSTIC DIGITAL BREAST TOMOSYNTHESIS, BILATERAL Limited left breast ultrasound. CLINICAL INFORMATION: Patient's physician felt a left breast palpable lump. Patient does not feel the area. Baseline. COMPARISON: Mammography: Comparison is made with relevant prior exams. TECHNIQUE: Digital breast mammography with tomosynthesis is performed in both the craniocaudal and mediolateral oblique views along with computer-aided detection (CAD). FINDINGS: The breasts are heterogeneously dense, which may obscure small masses (ACR BI-RADS breast composition Category c). BB marker in the lower inner left breast without underlying abnormality. There are no significant masses, abnormal calcifications, or other abnormalities. Targeted color Doppler ultrasound scanning in the left breast in the area of the physician felt palpable lump from 7:00 to 11:00 demonstrates normal fibroglandular breast tissue. There is no sonographic abnormality. Results are provided to the patient at time of visit by the technologist. MM/MM tomosynthesis diagnostic BI IMPRESSION: Right: Negative. Left: No mammographic or sonographic abnormality to account for the physician felt palpable lump. Recommend clinical evaluation and follow-up. ASSESSMENT: BI-RADS BI-RADS 1 - Negative RECOMMENDATION: 1 year F/U This patient's information was entered into a reminder system with a target due date for their next mammogram. Electronically signed by: Bruna Giordano DO 02/10/2025 03:47 PM EDT
--- OUTSIDE RECORDS SUMMARY | 2025-02-10 13:13 | XMS_ITS | Clinical Summary ---
Author Organization 175 [facility] Address [address] [place] [address] Phone Care Team Providers Care Mushroom Press Operator Name Role Phone Carri Hogan MD Primary Care Provider [phone] Allergies Active Allergy Reactions Criticality Noted Date [...] Date Obstructive sleep apnea 05/11/2021 Overview (07/03/2024): [facility] Home Sleep Apnea Test: Date [...] procedure Chronic hepatitis C without hepatic coma ([facility] V24, [facility] V28) 10/28/2015 Overview (07/03/2024): NOT DETECTED on 08/20/19. Gestational diabetes 05/12/2014 Anxiety and depression 02/07/2014 Asthma, mild intermittent 02/07/2014 Encounters Date Type Department Care Team Description 12/12/2024 8:45 AM EDT Office Visit Bariatric Surgery - [address] [place] [address] Kayy Engle PA Overweight (BMI [...] PROCEDURE: HISTORICAL DELIVERY OTHER SURGICAL HISTORY PROCEDURE: [place] ANES C-CATHJ W/C ANGIOGRAPHY & VENTRICULOGRAPHY FLEXIBLE [...] AM EDT Office Visit Bariatric Surgery - [place] 175 [facility] [address] [place] [phone] Kayy Engle PA [address] [address] Health Maintenance Due Date Last Done Comments [...] * Cervical Cancer Screening: HPV (09/10/2019) Pathologist [facility] Cervical Cancer Screening: HPV negative, abstracted Historical Provider HEALTH MAINTENANCE Final Result * Hepatitis C Screening (01/17/2019) Pathologist [facility] Hepatitis C Screening abstracted Historical Provider HEALTH MAINTENANCE Final Result * (ABNORMAL) Lipid panel (09/01/2017) [facility] LDL/HDL Ratio 4 0 - 4 Triglycerides 108 0 - 150 mg/dL Cholesterol 209(A) 0 - 200 mg/dL HDL 52 >=40 mg/dL LDL Cholesterol 136(A) 0 - 100 mg/dL Blood Venous blood specimen / Unknown us Historical Provider LAB BLOOD ORDERABLES Miguelina l Result from Last 3 Months or Most Recently Relevant to Health Maintenance Insurance [facility] [address] [place] [address] Care Teams Mushroom Press Operator Relationship Specialty Start Date End Date Carri Hogan MD 2 [facility] , [address] [facility] Physician Associ D/B/A: [facility] [place] PCP - General 09/20/22
== END 2025-02-10 13:11 | disposition home or self-care (01) ==
LOC: HO.MAMMO 13:10
PROVIDERS: PCP Internal Medicine; Visit Provider Internal Medicine
DX: N63.25 Unspecified lump in the left breast, overlapping quadrants (principal)
CPT/HCPCS: 76642; 77062; 77066

== ENCOUNTER → 2025-02-10 13:45 | Outpatient (BNV) | payer OTHER, SELFPAY | PROVIDERS: PCP Internal Medicine; Visit Provider Internal Medicine | DX: R92.333 Mammographic heterogeneous density, bilateral breasts (principal); N63.23 Unspecified lump in the left breast, lower outer quadrant | CPT/HCPCS: 76642; 77062; 77066 ==

== ENCOUNTER 2025-02-27 08:22 | Outpatient (REF) | payer OTHER, SELFPAY ==
[2025-02-27 09:07] LABS: MANUAL DIFF FLAG NO
[2025-02-27 10:04] LABS: Basophils Absolute Auto 0.1 X10*3/uL (0.0-0.2); Basophils Percent Auto 1.6 % (0-2); Eosinophils Absolute Auto 0.5 X10*3/uL (0.0-0.4); Eosinophils Percent Auto 10.1 % (0-4); Hematocrit 40.5 % (37.0-47.0); Hemoglobin 13.6 g/dl (12.0-16.0); Imm Gran Abs Auto 0.02 X10*3/uL (0.00-0.03); Imm Gran Pct Auto 0.4 % (0.0-0.4); Lymphocytes Absolute Auto 1.5 X10*3/uL (1.2-4.9); Lymphocytes Percent Auto 29.7 % (20-40); Mean Corpuscular HGB Conc 33.6 g/dl (31.0-35.0); Mean Corpuscular Hemoglobin 31.4 pg (27.0-33.0); Mean Corpuscular Volume 93.5 fL (80.0-98.0); Mean Platelet Volume 9.7 fL (9.4-12.3); Monocytes Absolute Auto 0.5 X10*3/uL (0.1-1.2); Monocytes Percent Auto 9.3 % (2-11); Neutrophils Absolute Auto 2.4 x10*3/uL (2.0-8.3); Neutrophils Percent Auto 48.9 % (45-73); Platelet Count 303 X10*3/uL (160-400); Red Blood Count 4.33 X10*6/uL (4.20-5.50); Red Cell Distribution Width 12.2 % (11.0-16.0)
[2025-02-27 10:45] LABS: Erythrocyte Sedimentation Rate 5 MM/HR (0-20)
[2025-02-28 22:53] LABS: Immunoglobulin E 10 kU/L (<OR=114)
== END 2025-02-27 08:23 | disposition home or self-care (01) ==
LOC: HO.LAB 08:22
PROVIDERS: PCP Internal Medicine; Visit Provider Hospitalist
DX: J30.2 Other seasonal allergic rhinitis (principal); J45.50 Severe persistent asthma, uncomplicated
CPT/HCPCS: 36415; 82785; 85025; 85652

== ENCOUNTER 2025-02-27 08:22 | Outpatient (AMB) | payer OTHER, SELFPAY ==
--- NOTE | 2025-02-27 08:25 | MHC.OFFVIS ---
Vital Signs 02/27/25 08:26 Height 5 ft 6 in Weight 159 lb 13.362 oz BMI 25.8 BP 128/70 Blood Pressure Location Lt brachial Position Sitting Pulse 76 Pulse Source Pulse Oximeter Pulse Oximetry (%) 99 Oxygen Delivery Method Room Air Intake Visit Reasons: Asthma Monogram Technician Required: No Accompanied by: Self / Same As Patient Allergies amoxicillin [Amoxicillin] Allergy (Severe, Verified 02/27/25 08:29) Rash/Hives coconut Allergy (Severe, Verified 02/27/25 08:29) Rash/Hives hazelnut Allergy (Severe, Verified 02/27/25 08:29) Rash/Hives Penicillins Allergy (Severe, Verified 02/27/25 08:29) Rash/Hives Sulfa (Sulfonamide Antibiotics) Allergy (Severe, Verified 02/27/25 08:29) Rash/Hives Latex, Natural Rubber Adverse Reaction (Severe, Verified 02/27/25 08:29) Blister From Lexapro Allergy (Severe, Uncoded 09/16/24 09:17) Rash/Hives From Prozac Allergy (Severe, Uncoded 09/16/24 09:17) Rash/Hives From Zoloft Allergy (Severe, Uncoded 09/16/24 09:17) Rash/Hives HPI Comments Details: The patient is a 44-year-old woman with a known history of asthma and significant allergies. For the last year and a half she has been having worsening respiratory symptoms. She has been following closely with Pulmonary at [place]. However, her symptoms have been getting worse and she has not been able to get in for an appointment. Therefore she has had to go to the ER in urgent care for her care. She has been on multiple inhalers initially on Flovent. more recently she was switched over to Advair Diskus and also given singular. Due to her significant history of bipolar she has been worried about using steroids and also using the singular medication because of the potential adverse effects. She has required multiple courses of prednisone tapers because the significant wheezing. In view of her ongoing symptoms he can last week which she was again given prednisone. Her blood work was relatively normal and her x-ray was personally reviewed by me demonstrating no acute disease. On further questioning she states that she had allergy testing in the past with significant allergies noted at the time. She was not offered any allergy shots at that time. In addition to that she was a smoker in the past but no longer. Her significant other does smoke although he has quitting in he also owns a cat that she has no she is allergic to. She denies any mold or any other exposures in her household that she is aware of. In the office today she was found to be significantly wheezy both during the inspiratory in the expert or E phase. She did received 2 DuoNeb treatments with complete resolution or wheezing which is reassuring. The patient is currently on prednisone taper. she has 1 more dose to finished a taper which will be tomorrow. 09/14/2022 the patient is here for a pulmonary follow-up visit. The patient overall is doing well. The Dupixent injections have been very helpful. Sometimes she forgets and she does not take the Dupixent as prescribed. Explained to her that she needs taking regularly in order for the effect of the medication to be maximized. Indeed by taking every 2 weeks there is going to be less inflammation to the airways and more healing will take place. Therefore, patient will start doing so. She continues to use her respiratory inhalers as prescribed. The patient has not required any prednisone which is reassuring. Patient also has been practicing positional therapy. She can no longer use her CPAP so therefore she will return it. Sleeping on her side be helpful to minimize snoring. We also talked about considering a mandibular advancing device that she can get from her dentist. 10/25/2023 the patient is here for a pulmonary follow-up visit. The patient overall has been doing well. She has been very active. She has been exercising in participating in [employer]. The Dupixent injection has been very affecting beneficial for her. She does take it every 2 weeks because after those 2 weeks she starts getting symptomatic if she does not take it. She still requires her Symbicort and her Spiriva. These medications been also affecting beneficial. She has not had any flare-ups in not needed any prednisone since she has been on Dupixent. The patient has been having some issues with snoring and waking up with snoring. She did visit her dentist and she is going to consider an elastic mandibular device and positional therapy. The patient will continue with current respiratory therapy and will follow-up in a year's time. 02/27/2025 the patient is here for a pulmonary follow-up visit. The patient had a bad bout of asthma several weeks ago. She woke up short of breath. She had to use her albuterol. She did not any prednisone. She took her Dupixent shot in quickly she did get better. She has had issue with Dupixent because is very very painful at the site. She has also had some little bit of conjunctivitis from it. We did look at her blood work. Her eosinophils were significantly elevated and also her IgE was within normal limits. Therefore she may be a good candidate for an L5 inhibitor instead. Will have her get some blood work and then assess. She is currently doing the syringes well if she stays on Dupixent we can do the auto pen to make a little bit less painful for her. She continues her respiratory therapy as prescribed. She is also continuing positional therapy although she did do Zepbound and she has significant weight loss. Denies any significant daytime drowsiness. The patient is doing well will follow-up in a year's time. I will call once I get the blood work. [facility] Medical History Left breast lump IUD surveillance BRCA negative Asthma-COPD overlap syndrome MORALES (obstructive sleep apnea) Seasonal allergies Asthma Asthma Surgical History History of loop electrical excision procedure (LEEP) H/O cardiac catheterization History of section Family History Mother Skin cancer Hypertension Father H/O heart artery stent Skin cancer Paternal Aunt Breast cancer Brother Skin cancer Family/Other Breast cancer Social History Housing: Apartment Alcohol intake: current Alcohol intake frequency: holidays/special occasions only Alcohol type: beer and wine Patient Tobacco Use Status: Former Tobacco user Tobacco use type: Cigarette Years Smoked: 11 years e-Cigarette/Vaping Use: Never Used Second Hand Smoke Exposure: No Substance Use Type: Marijuana service: No Current occupational status: employed 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 Current occupational exposures/hazards: No Cognitive needs: No Hearing needs: No Vision needs: No Female Reproductive History Menstrual Age of Menarche: 13 Review of Systems Const Denies chills, Denies fatigue, Denies fever(s) and Reports weight loss Eyes Denies change in vision ENT Denies dizziness Card Denies chest pain, Denies leg edema, Denies lightheadedness, Denies palpitations, Denies dyspnea on exertion, Denies orthopnea and Denies other Resp Reports cough, Denies dyspnea on exertion and Reports wheezing GI Denies hematochezia and Denies change in stool character Denies dysuria Musc Denies abnormal gait, Denies muscle weakness, Denies numbness, Denies radiating pain into limb and Denies tingling Skin/Breast Reports system reviewed and no additional complaints, except as documented, Denies lesions and Denies rash Neuro Reports no additional complaints, Denies abnormal gait, Denies dizziness, Denies numbness and Denies tingling Endo Reports no additional complaints, Denies fatigue and Denies palpitations Alexis/Lymph Reports no additional complaints Aller/Immun Reports no additional complaints and Reports wheezing Physical Exam Vital Signs: Last Vital Signs Pulse 76 02/27/25 08:26 BP 128/70 02/27/25 08:26 Pulse Ox 99 02/27/25 08:26 Oxygen Delivery Method Room Air 02/27/25 08:26 BMI result Body Mass Index 25.8 Const General: alert HEENT Face and sinus: Yes face symmetric, Yes sinus tenderness and Yes Facial tenderness on exam of face and sinuses Neck Neck: Yes normal visual inspection, Yes full ROM and Yes no lymphadenopathy Chest Chest palpation & inspection: normal inspection of the chest Resp Effort & Inspection: normal respiratory effort Auscultation: no wheezes and diminished lung sounds Cardio Rate: regular rate Rhythm: regular rhythm Heart sounds: S1 normal heart sound present and S2 normal heart sound present GI Palpation (GI): Soft to palpation and nontender Auscultation: normal bowel sounds Skin General skin exam: rashes and/or lesions noted Assessment & Plan Assessment & Plan (1) Asthma: Code(s): J45.909 - Unspecified asthma, uncomplicated Category: Medical Qualifiers: Asthma complication type: uncomplicated Asthma persistence: persistent Asthma severity: severe Qualified Code(s): J45.50 - Severe persistent asthma, uncomplicated (2) Seasonal allergies: Code(s): J30.2 - Other seasonal allergic rhinitis Category: Medical (3) MORALES (obstructive sleep apnea): Code(s): G47.33 - Obstructive sleep apnea (adult) (pediatric) Category: Medical Plan Continue Dupixent SC every 2 weeks, but will consider Fasenra based on bloodwork continue DuoNeb 2 to 4 times a day as needed Symbicort 2 puffs twice a day continue Spiriva daily Consider positional therapy and mandibular advancement device. Follow-up in 12 months Orders: Orders Complete Blood Count Auto Diff Today J30.2 - Other seasonal allergic rhinitis, J45.50 - Severe persistent asthma, uncomplicated Erythrocyte Sedimentation Rate Today J30.2 - Other seasonal allergic rhinitis, J45.50 - Severe persistent asthma, uncomplicated Immunoglobulin E Today J30.2 - Other seasonal allergic rhinitis, J45.50 - Severe persistent asthma, uncomplicated Medications: Changed From albuterol sulfate 90 mcg/actuation inhalation To albuterol sulfate 90 mcg/actuation 2 puffs inhalation Q4H PRN 8.5 grams 11RF shortness of breath or wheezing 30 days Refilled ipratropium-albuterol 0.5 mg-3 mg(2.5 mg base)/3 mL 3 mL inhalation BID PRN 90 mL 11RF shortness of breath or wheezing 30 days Coding Level of Care Code Est Pt Level 4 (58448) Diagnoses Severe persistent asthma without complication J45.50 Asthma complication type: uncomplicated Asthma persistence: persistent Asthma severity: severe Seasonal allergies J30.2 MORALES (obstructive sleep apnea) G47.33 Time Spent (min) 16
[2025-02-27 08:26] VITALS: BP 128/70; PULSE 76; O2SAT 99; BMI 25.8
--- OUTSIDE RECORDS SUMMARY | 2025-02-27 08:35 | XMS_ITS | Clinical Summary ---
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 Gestational diabetes 05/12/2014 Anxiety and depression 02/07/2014 Asthma, mild intermittent 02/07/2014 Encounters Date Type Department Care Team Description 12/12/2024 8:45 AM EDT Office Visit Bariatric Surgery - [address] [place] [address] Kayy Engle PA Overweight (BMI [...] PROCEDURE: HISTORICAL DELIVERY OTHER SURGICAL HISTORY PROCEDURE: FL ANES C-CATHJ W/C ANGIOGRAPHY & VENTRICULOGRAPHY FLEXIBLE [...] Care Team (Late st Contact Info) Description 06/18/2025 8:15 AM EDT Office Visit Bariatric Surgery - [place] [facility] [address] [place] [id number] Kayy Engle PA [address] [address] Health Maintenance Due Date Last Done Comments [...] Cancer Screening: HPV (09/10/2019) Pathologist [facility] Cervical Cancer Screening: HPV negative, abstracted Historical Provider HEALTH MAINTENANCE Final Result * Hepatitis C Screening (01/17/2019) Pathologist [facility] Hepatitis C Screening abstracted Historical Provider HEALTH MAINTENANCE Final Result * (ABNORMAL) Lipid panel (09/01/2017) [facility] LDL/HDL Ratio 4 0 - 4 Triglycerides 108 0 - 150 mg/dL Cholesterol 209(A) 0 - 200 mg/dL HDL 52 >=40 mg/dL LDL Cholesterol 136(A) 0 - 100 mg/dL Blood Venous blood specimen / Unknown us Historical Provider LAB BLOOD ORDERABLES Miguelina l Result from Last 3 Months or Most Recently Relevant to Health Maintenance Insurance [facility] [address] [place] [address] Care Teams Waste Machine Operator Relationship Specialty Start Date End Date Carri Hogan MD [address] [facility] , [address] [facility] [place] PCP - General 09/20/22
== END 2025-02-27 08:46 | disposition home or self-care (01) ==
LOC: HO.HPS 08:23
PROVIDERS: PCP Internal Medicine; Visit Provider Hospitalist
DX: J45.50 Severe persistent asthma, uncomplicated (principal); J30.2 Other seasonal allergic rhinitis; G47.33 Obstructive sleep apnea (adult) (pediatric)
CPT/HCPCS: 99214

== ENCOUNTER 2025-09-22 08:54 | Outpatient (AMB) | payer OTHER, SELFPAY ==
[2025-09-22 08:59] VITALS: BP 118/76; PULSE 68; TEMP 36.1; O2SAT 98; BMI 28.6
--- NOTE | 2025-09-22 08:59 | MHC.PC.OV ---
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: No Accompanied by: Self / Same As Patient Allergies amoxicillin (Amoxicillin) Allergy (Severe, Verified 09/22/25 09:05) Rash/Hives coconut Allergy (Severe, Verified 09/22/25 09:05) Rash/Hives hazelnut Allergy (Severe, Verified 09/22/25 09:05) Rash/Hives Penicillins Allergy (Severe, Verified 09/22/25 09:05) Rash/Hives Sulfa (Sulfonamide Antibiotics) Allergy (Severe, Verified 09/22/25 09:05) Rash/Hives Latex, Natural Rubber Adverse Reaction (Severe, Verified 09/22/25 09:05) Blister From Lexapro Allergy (Severe, Uncoded 09/22/25 09:05) Rash/Hives From Prozac Allergy (Severe, Uncoded 09/22/25 09:05) Rash/Hives From Zoloft Allergy (Severe, Uncoded 09/22/25 09:05) Rash/Hives Medication List - Last Reconciled 09/22/25 by Carri Hogan MD acetazolamide 125 mg PO Q6H 30 days albuterol sulfate 90 mcg/actuation 2 puffs inhalation Q4H PRN 30 days dupilumab (Dupixent) 300 mg (2 mL) subcut Q2W 4 weeks galcanezumab-gnlm (Emgality Pen) 120 mg subcut ONCE 30 days ipratropium-albuterol 0.5 mg-3 mg(2.5 mg base)/3 mL 3 mL inhalation BID PRN 30 days levonorgestrel (Mirena) intrauterine lorazepam 0.5 mg PO DAILY PRN 30 days omeprazole 40 mg PO DAILY 90 days Spiriva Respimat 2.5 mcg/actuation (tiotropium bromide) 2 puffs PO DAILY NS sumatriptan succinate 50 - 100 mg orally at onset of headache, may repeat in 2 hrs PRN; max 2 tabs per day or 4 tabs/week (may take with Ibuprofen) 60 days Symbicort 160-4.5 mcg/actuation (budesonide-formoterol) 2 puffs PO BID NS tirzepatide (weight loss) (Zepbound) 2.5 mg subcut QWEEK valacyclovir (Valtrex) 500 mg PO DAILY Tobacco use date assessed: 09/22/25 Dental Screening Dental Screen Date: 09/22/25 Did you have a dental visit in the last 12 months?: Yes Did you have a dental problem in the last 6 months where you did not have access to dental care?: No Was dental information given to patient?: Patient has dentist HPI HPI Comments History of Present Illness Details This is a 44-year-old female that comes for her physical exam. Mammogram done 2024. Pap smear done 2022 and had HPV negative. Tdap vaccine done 2023. Declines flu vaccine today. Has family history of skin cancer and would like to be referred to Dermatology. Asthma-COPD overlap syndrome stable with inhalers as needed. Anxiety well controlled with benzodiazepines as needed. [facility] Medical History (Updated 09/22/25 @ 09:24 by Carri Hogan MD) Left breast lump IUD surveillance BRCA negative Asthma-COPD overlap syndrome MORALES (obstructive sleep apnea) Seasonal allergies Asthma Asthma Surgical History History of loop electrical excision procedure (LEEP) H/O cardiac catheterization History of section Family History Mother Skin cancer Hypertension Father H/O heart artery stent Skin cancer Paternal Aunt Breast cancer Brother Skin cancer Family/Other Breast cancer Social History Housing: Apartment Alcohol intake: current Alcohol intake frequency: holidays/special occasions only Alcohol type: beer and wine Patient Tobacco Use Status: Former Tobacco user Tobacco use type: Cigarette Years Smoked: 11 years e-Cigarette/Vaping Use: Never Used Second Hand Smoke Exposure: No Substance Use Type: Marijuana service: No Current occupational status: employed 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 1. Little interest or pleasure in doing things: not at all 2. Feeling down, depressed, or hopeless: not at all 3. Trouble falling or staying asleep, or sleeping too much: not at all 4. Feeling tired or having little energy: not at all 5. Poor appetite or overeating: not at all 6. Feeling bad about yourself - or that you are a failure or have let yourself or your family down: not at all 7. Trouble concentrating on things, such as reading the newspaper or watching television: not at all 8. Moving or speaking so slowly that other people could have noticed. Or the opposite - being so fidgety or restless that you have been moving around a lot more than usual: not at all 9. Thoughts that you would be better off or of hurting yourself in some way: not at all Total score: 0 Depression Screening Interpretation: Negative Depression Screening Done: Yes 81799 - PHQ-9 Billing: Yes Source: Developed by Drs. Matthew Gracia, Daniella Arana, Arpit Watson and colleagues, with an educational juan c from [employer]. Thrive Questionnaire Date Thrive assessed: 09/22/25 I am a: Patient What is your living situation today?: I have a steady place to live Within the past 12 months, did the food you bought not last and you didn't have the money to get more?: Never true Within the past 12 months, did you worry whether your food would run out before you got money to buy more?: Never true Do you have trouble paying for medicines?: No Do you have trouble getting transportation to medical appointments?: No Do you have trouble paying your heating and electricity bill?: No Do you have trouble taking care of your child, family member or friend?: No Do you have trouble with day-to-day activities such as bathing, preparing meals, shopping, managing finances, etc.?: No Are you currently unemployed and looking for a job?: No Are you interested in more education?: No Please select the resources that you would like help with: None Currently or been in a relationship where the following occur: No concerns reported THRIVE Score: 0 AUDIT C Alcohol Use Questionnaire (AUDIT-C) 1. How often do you have a drink containing alcohol?: Monthly or less 2. How many drinks containing alcohol do you have on a typical day when you are drinking?: 1 or 2 3. How often do you have six or more drinks on one occasion?: Never Total Score: 1 Score Reviewed/Action Taken: No SCOOBY-7 AMB Questionnaire SCOOBY-7 Date SCOOBY - 7 assessed: 09/22/25 Feeling nervous, anxious, or on edge: 1 = Several days Not being able to stop or control worryin = Not at all Worrying too much about different things: 1 = Several days Trouble relaxin = Several days Being so restless that it is hard to sit still: 1 = Several days Becoming easily annoyed or irritable: 1 = Several days Feeling afraid as if something awful might happen: 1 = Several days Total SCOOBY-7 score (0-4 normal; 5-9 mild; 10-14 moderate; 15-21 severe): 6 Source: Developed by Drs. Matthew Gracia, Daniella Arana, Arpit Watson and colleagues, with an educational juan c from [employer]. SCOOBY-7 Assessment Billing SCOOBY-7 Assessment Tool: SCOOYB-7 Assessment 78013 Review of Systems Const All systems reviewed & are unremarkable except as noted in HPI and below Card Denies chest pain at rest, Denies chest pain with activity, Denies edema, Denies irregular heart rhythm, Denies claudication, Denies dyspnea, Denies dyspnea on exertion, Denies orthopnea, Denies paroxysmal nocturnal dyspnea and Denies slow heart rate Resp Denies cough, Denies dyspnea and Denies dyspnea on exertion Denies urinary incontinence, Denies urinary hesitancy and Denies urinary urgency Musc Denies atrophy, Denies deformity and Denies limited range of motion Physical exam (Primary Care) Vital Signs: Last Vital Signs Temp 97.0 F 09/22/25 08:59 Pulse 68 09/22/25 08:59 BP 118/76 09/22/25 08:59 Pulse Ox 98 09/22/25 08:59 Oxygen Delivery Method Room Air 09/22/25 08:59 BMI result Body Mass Index 28.6 BMI Assessment/Plan discussion: High BMI High, discussed plan: lifestyle, weight reduction, dietary and physical activity Tobacco/Smoking Status: Tobacco use Status Tobacco use date assessed 09/22/25 09/22/25 09:03 Patient Tobacco Use Status Former Tobacco user 09/22/25 09:03 Tobacco use type Cigarette 09/22/25 09:03 e-Cigarette/Vaping Use Never Used 09/22/25 09:03 PHQ-9: PHQ-9 Score PHQ-9: Total score 0 09/22/25 09:03 Depression Screening Interpretation: Negative Thrive Assessment: Date of Thrive Assessment Date Thrive assessed 09/22/25 09/22/25 09:03 Currently or been in a relationship where the following occur: No concerns reported HENMT Head: Yes normal to inspection, Yes normocephalic and Yes atraumatic Ears: external ears normal Eyes General: appearance normal, both eyes and all related structures Eyelids: Yes eyelids normal Conjunctivae: conjunctivae normal Neck Neck: Yes normal visual inspection and Yes supple Resp Effort & Inspection: normal respiratory effort Auscultation: clear to auscultation bilaterally Cardio Jugular venous distension: no JVD Rate: regular rate Rhythm: regular rhythm Heart sounds: S1 normal heart sound present and S2 normal heart sound present GI Inspection: Yes normal to inspection Palpation (GI): Soft to palpation and nontender Auscultation: normal bowel sounds Skin General skin exam: no rashes or lesions noted Neuro General: no focal motor deficits Extrem General: Yes full ROM Psych Appearance: grossly normal Coding Level of Care Code Est Pt Level 3 (23296) Est Pt Prev Care 40-64y(66434) Diagnoses Physical exam Z00.00 Anxiety F41.9 Family history of skin cancer Z80.8 Asthma-COPD overlap syndrome J44.9 Additional Codes SCOOBY-7 Assessment Billing - SCOOBY-7 Assessment Tool: SCOOBY-7 Assessment 92183 ([id number]) PHQ-9 - 00477 - PHQ-9 Billing: Yes ([id number]) Time Spent (min) 31 Assessment & Plan Assessment & Plan (1) Physical exam: Code(s): Z00.00 - Encounter for general adult medical examination without abnormal findings Category: Medical (2) Anxiety: Code(s): F41.9 - Anxiety disorder, unspecified Category: Medical (3) Family history of skin cancer: Code(s): Z80.8 - Family history of malignant neoplasm of other organs or systems Category: Medical (4) Asthma-COPD overlap syndrome: Code(s): J44.9 - Chronic obstructive pulmonary disease, unspecified Category: Medical Plan Repeat physical exam in a year. Continue yearly mammograms. Referred to dermatology due to family history of skin cancer. Continue same medications. Orders: Referrals Dermatology Referral Z80.8 - Family history of malignant neoplasm of other organs or systems Medications: Refilled lorazepam 0.5 mg PO DAILY PRN 20 tabs 0RF anxiety 30 days
--- OUTSIDE RECORDS SUMMARY | 2025-09-22 09:06 | XMS_ITS | Clinical Summary ---
Author Organization [facility] Address [address] [place] [address] Phone Care Team Providers Care Pigs Feet Finisher Name Role Phone Carri Hogan MD Primary Care Provider [phone] Allergies Active Allergy Reactions Criticality Noted Date Comments Amoxicillin 01/20/2015 Coconut Flavor 02/07/2014 Positive allergy blood work, no history of reaction Fluoxetine Hives,Wheezing 05/12/2014 [place]el[place] 11/28/2022 Latex Hives 02/26/2014 Other 02/26/2014 [place] positive blood testing, no history of reactions with ingestion Other (No Interaction Warnings) Penicillins 02/07/2014 Sertraline Hives 05/12/2014 Sob Sulfa (Sulfonamide Antibiotics) 02/07/2014 Medications galcanezumab-g nlm (Emgality Pen) 120 mg/mL injection pen Inject [...] spray daily in each nostril. 1 Active budesonide/for moterol fumarate (SYMBICORT INHL) Inhale into the lungs. Active tirzepatide (Mounjaro) 7.5 mg/0.5 mL injection Inject 0.5 mL (7.5 mg total) under the skin every 7 (seven) days. 2 mL 2 5 12/11/19 26 Active tirzepatide (Mounjaro) 7.5 mg/0.5 mL injection Inject 0.5 mL (7.5 mg total) under the skin every 7 (seven) days. 2 mL 5 09/03/20 25 Active Problems Problem Noted Date Diagnosed Date Obstructive sleep apnea 05/11/2021 Overview (07/03/2024): [facility] Home Sleep Apnea Test: Date [...] procedure Chronic hepatitis C without hepatic coma 016 Overview (07/03/2024): NOT DETECTED on 08/20/19. Gestational diabetes 05/12/2014 Anxiety and depression 02/07/2014 Asthma, mild intermittent 02/07/2014 Encounters Date Type Department Care Team Description 09/10/2025 Telephone Bariatric Surgery [address] [phone] Kayy Engle PA 07/01/2025 Telephone Bariatric Surgery [address] [phone] Kayy Engle PA 07/01/2025 Telephone Bariatric Surgery [address] [phone] Kayy Engle, PA from Last 3 Months Immunizations Immunization Administration Dates Next Due Influenza Quadravalent, MDCK [...] PROCEDURE: HISTORICAL DELIVERY OTHER SURGICAL HISTORY PROCEDURE: [place] ANES C-CATHJ W/C ANGIOGRAPHY & VENTRICULOGRAPHY FLEXIBLE [...] on file Sexual Orientation Not on file Last Filed Vital Signs Vital Sign Reading Time Taken Comments Blood Pressure 143/84 06/18/2025 8:16 AM EDT Pulse 68 06/18/2025 8:16 AM EDT Temperature - - Respiratory Rate - - Oxygen Saturation - - Inhaled Oxygen Concentration - - Weight 80.5 kg (177 lb 6.4 oz) 06/18/2025 8:16 A M EDT Height 165.1 cm (5' 5 ) 06/18/2025 8:16 AM EDT Body Mass Index 29.52 06/18/2025 8:16 AM EDT Plan of Treatment Upcoming Encounters Date Type Department Care Team (Late st Contact Info) Description 11/19/2025 8:15 AM EST Office Visit Bariatric Surgery - [address] [place] [address] Kayy Engle PA [address] [place] [phone] Health Maintenance Due Date Last Done Comments Breast Cancer Screening 1980 Drug Screen 1981 Non-Opioid Controlled Substance Agreement 1981 Hepatitis B Vaccines (2 of 3 - 3-dose series) 1981 1981 HPV Vaccines (1 - 3-dose SCDM series) 2008 Pneumococcal Vaccine: Pediatrics (0 to 5 Years) and At-Risk Patients (6 to 49 Years) (2 of 2 - PCV) 07/29/2022 07/29/2021, 06/19/2018 Cholesterol Screening (Lipid Panel) 09/03/2022 09/01/2017 HIV Screening 09/03/2022 Social Influencers of Health Screening 09/03/2022 Cervical Cancer Screening: Pap Smear 09/10/2022 09/10/2019, 09/10/2019 Depression Screening 09/25/2024 COVID-19 Vaccine ( season) 2025 07/29/2021, 11/20/2020, 10/23/2020 Influenza Vaccine (#1) 2025 , 06/19/2018, 07/13/2017, Additional history exists DTaP,Tdap,and Td Vaccines (3 - Td or Tdap) 04/04/2034 04/04/2024, 06/02/2011 RSV Immunization Adult Patients (1 - 1-dose 75+ series) 2056 Hepatitis C Screening Completed 01/17/2019 HIB Vaccines [...] Procedure Name Priority Date/Time Associated Diagnosis Comments PAP SMEAR Routine 09/10/2019 HM HEPATITIS C SCREENING Routine 01/17/2019 LIPID PANEL Routine 09/01/2017 from Last 3 Months or Most Recently Relevant to Health Maintenance Results * Pap smear (09/10/2019) 09/10/2019 Narrative HISTORICAL TESTING LAB RESULTING AGENCY - 09/12/2019 5:11 PM EST [id number] THINPREP PAP, IMAGED: NEGATIVE FOR SQUAMOUS INTRAEPITHELIAL LESION AND MALIGNANCY . CATARINA MCCARTHY(ASCP) (CASE ELECTRONICALLY SIGNED 09 12 2019) RESULT OF APTIMA HIGH RISK HPV ASSAY: HIGH RISK HPV: NEGATIVE (SEROTYPES 16,18,31,33,35,39,45,51,52,56,58,59,66,68) COMPLETED ON 2019-09-12 ADEQUACY: SATISFACTORY ENDOCERVICAL/TRANSFORMATION ZONE COMPONENT ABSENT. SOURCE: THINPREP PAP HPV ANY DX: REFLEX 16 AND 18, CERVICAL, IMAGED CLINICAL INFORMATION: HPV ANY DIAGNOSIS. Z12.4 Alison ASHLEY LAB CYTOLOGY ORDERABLES Final R esult HISTORICAL TESTING LAB RESULTING AGENCY * Hepatitis C Screening (01/17/2019) Pathologist [facility] Hepatitis C Screening abstracted Historical Provider HEALTH MAINTENANCE Final Result * (ABNORMAL) Lipid panel (09/01/2017) LDL/HDL Ratio 4 0 - 4 Triglycerides 108 0 - 150 mg/dL Cholesterol 209(A) 0 - 200 mg/dL HDL 52 >=40 mg/dL LDL Cholesterol 136(A) 0 - 100 mg/dL Blood Venous blood specimen / Unknown Historical Provider LAB BLOOD ORDERABLES Miguelina l Result from Last 3 Months or Most Recently Relevant to Health Maintenance Insurance [facility] [address] [place] [id number] Care Teams Pigs Feet Finisher Relationship Specialty Start Date End Date Carri Hogan MD 2 [facility] , [address] Physician Associ D/B/A: [place] [facility] SARAH Burns PCP - General 09/20/22
--- OUTSIDE RECORDS SUMMARY | 2025-09-22 09:06 | XMS_ITS | Patient Health Record ---
Author Organization [facility] Address [address] [place] [phone] Care Team Providers Care Roaster Supervisor Name Role Phone Marcos Altamirano Jr Reason For Referral No Information Plan Of Treatment No Information
== END 2025-09-22 09:17 | disposition home or self-care (01) ==
LOC: HO.HMCH 08:54
PROVIDERS: PCP Internal Medicine; Visit Provider Internal Medicine
DX: Z00.00 Encounter for general adult medical examination without abnormal findings (principal); J44.89 Other specified chronic obstructive pulmonary disease; F41.9 Anxiety disorder, unspecified; Z80.8 Family history of malignant neoplasm of other organs or systems

== ENCOUNTER → 2025-09-22 08:54 | Outpatient (BNVA) | payer OTHER, SELFPAY | PROVIDERS: PCP Internal Medicine; Visit Provider Internal Medicine | DX: Z13.31 Encounter for screening for depression (principal); Z13.39 Encounter for screening examination for other mental health and behavioral disorders | CPT/HCPCS: 96127 ==